=== PATIENT | female | born 1940 | race Caucasian/White ===

== ENCOUNTER 2020-12-02 13:20 | Inpatient (IN) | payer MEDICARE, OTHER, SELFPAY ==
[2020-12-02] VITALS (11 sets, daily range): BP systolic 142–218; BP diastolic 50–92; PULSE 64–86; RESP 14–18; TEMP 36.6–36.8; O2SAT 92–96; BMI 19.1
--- NOTE | 2020-12-02 13:37 | ECG_ITS ---
[facility] Test Date: 2020-12-02 Pat Name: Cherelle Astorga Department: Room: Gender: Female Financial Underwriter: : 1940 Requested By: Maribell Lim Order Number: [id number] Laron MD: Mendy San M.D. Measurements Intervals [place] Rate: 82 P: 77 MI: 174 QRS: 61 QRSD: 73 T: 73 QT: 372 QTc: 436 Interpretive Statements SINUS RHYTHM POSSIBLE LEFT ATRIAL ENLARGEMENT [-0.1mV P-WAVE IN V1/V2] POSSIBLE LEFT VENTRICULAR HYPERTROPHY [VOLTAGE CRITERIA PLUS LAE OR QRS WIDENING] POSSIBLE SEPTAL MYOCARDIAL INFARCTION , OF INDETERMINATE AGE [30 ms Q WAVE IN V1/V2] No previous ECG available for comparison Electronically Signed On 12-04-2020 10:41:42 CDT by Mendy San M.D. [id number]
--- NOTE | 2020-12-02 13:37 | W.ED.FALL ---
HPI - Fall General: Chief Complaint: Fall Stated Complaint: FALL/ SHORTENING AND ROTATION Time Seen by Provider: 12/02/20 13:24 Source: patient and EMS Mode of arrival: EMS Limitations: no limitations History of Present Illness: HPI Narrative: Patient is a nice 80-year-old female who presents to the ED today via EMS for evaluation of a right hip injury that she sustained yesterday after tripping going up her porch. Patient states she was able to get up with assistance and could bear minimal weight on the extremity all day yesterday. Reports she did not strike her head/no LOC. Does not complain of neck/back pain. She states she was trying to get out of her recliner today and felt immediate excruciating right hip pain. Patient was given 100 mcg fentanyl in route and is pain-free upon arrival. Patient has no significant PMH and takes no medications. complaint: fall Onset (ago): hour(s) Fall from: standing Fall witnessed: yes, by family Place fall occurred: home Loss of consciousness: None Prolonged down time: no Symptoms prior to fall: none Context: tripped/slipped Severity: severe Associated symptoms-after fall: Reports difficulty walking; Denies abdominal pain, chest pain, headache(s), hematuria, lightheadedness or neck pain Review of Systems Const: Denies: fever(s), chills, body aches or fatigue Eyes: Denies: change in vision Card: Denies: chest pain, palpitations, irregular heart rhythm, edema, swelling of feet/ankles, lightheadedness, syncope, pre-syncope or dyspnea on exertion Resp: Denies: dyspnea or chest congestion GI: Denies: abdominal pain, nausea, vomiting or diarrhea : Denies: flank pain, dysuria or hematuria Musc: Reports: joint pain (R hip); Denies: neck pain, back pain, extremity pain, extremity swelling or joint swelling Neuro: Reports: difficulty walking; Denies: headache(s), numbness in extremities, weakness in extremities or sensory changes [facility] ED PFSH: Medical History (Updated 12/02/20 @ 19:18 by Bolivar Gamboa MD) No significant family history Surgical History (Updated 12/02/20 @ 19:12 by Bolivar Gamboa MD) No significant past surgical history Family History (Updated 12/02/20 @ 19:13 by Bolivar Gamboa MD) Other CAD (coronary artery disease) Cancer Social History (Updated 12/02/20 @ 19:13 by Bolivar Gamboa MD) Smoking and tobacco status: former smoker Alcohol intake: never Adopted: No Caregiver/support person: Yes Lives independently: Yes Household members: spouse Housing: House Physical Exam Const: COMMON NORMALS: no acute distress, average body habitus, patient oriented x3, no limitations, healthy appearing, alert and well nourished HENMT: COMMON NORMALS: normocephalic and atraumatic HEAD & SCALP: normocephalic and atraumatic Resp: COMMON NORMALS: normal respiratory effort and clear to auscultation bilaterally AUSCULTATION: clear to auscultation bilaterally Cardio: COMMON NORMALS: regular rate and regular rhythm RATE: regular rate RHYTHM: regular rhythm Back/Pelvis: COMMON NORMALS: thoracic and lumbar spine normal to inspection, no thoracic nor lumbar tenderness and thoraco-lumbar ROM normal Extremity: GENERAL: Yes normal exam except as noted OTHER: patient has R LE flexed at the knee with a blanket under; she complaints of fairly significant discomfort with any form of ROM or if I try to extend knee to evaluate for shortening; extremity has good DP/PT pulses and sensory is intact; she complains of pain to direct palpation of lateral and posterior hip joint Neuro: COMMON NORMALS: patient oriented x3, moves all extremities, no focal motor deficits and no sensory deficits noted SENSORIUM/ORIENTATION: Yes alert Skin: COMMON NORMALS: no rashes or lesions noted GENERAL SKIN EXAM: no rashes or lesions noted TRAUMA: no lacerations or abrasions Course Consultations: Consultation #1: Dr. Benitez-recommends admit and he will perform arthoplasty Consultation #2: Dr. Sutton-accepts admission Vital Signs: Vital signs: Vital Signs Temperature 98.2 F 12/03/20 07:23 Pulse Rate 70 12/03/20 07:23 Respiratory Rate 16 12/03/20 07:23 Blood Pressure 162/76 12/03/20 07:23 Pulse Oximetry 96 12/03/20 07:23 MDM - Fall Lab Data: Labs: Lab Results 12/02/20 12/02/20 12/02/20 Range/Units 13:49 13:49 13:49 WBC 9.9 (4.0-10.0) 10^3/ uL RBC 3.16 L (4.1-5.3) 10^6/u L Hgb 10.0 L (11.5-15.3) g/dL Hct 30.2 L (37.0-47.0) % MCV 95.6 (81-99) fl MCH 31.6 (28.0-34.0) pg MCHC 33.1 (30.0-36.0) g/dL RDW 12.6 (12.1-15.1) % Plt Count 144 (130-400) 10^3/c mm MPV 10.3 (7.4-10.4) fL Neut % (Auto) 80.9 % Lymph % (Auto) 6.4 % [place] % (Auto) 11.7 % Eos % (Auto) 0.3 % Baso % (Auto) 0.2 % Neut # (Auto) 8.03 H (1.8-7.7) 10^3/u L Lymph # (Auto) 0.6 L (0.8-4.8) 10^3/u L [place] # (Auto) 1.2 H (0.2-0.9) 10^3/u L Eos # (Auto) 0.0 (0.0-0.8) 10^3/u L Baso # (Auto) 0.0 (0.0-0.1) 10^3/u L Nucleated RBC % (a uto) 0 % Nucleated RBCs # 0.0 /100WBC PT (12.1-14.9) SECO NDS INR (0.8-1.2) Sodium 139 (136-145) mmol/L Potassium 4.1 (3.5-5.1) mmol/L Chloride 104 (98-107) mmol/L Carbon Dioxide 25 (22-29) mmol/L Anion Gap 14.1 (5-19) BUN 23 (8-23) mg/dL Creatinine 1.2 H (0.5-0.9) mg/dL GFR Calculation Not Reportable Glucose 118 H (65-115) mg/dL Calculated Osmolal ity 293 (285-295) mOsm/k g Calcium 8.3 L (8.5-10.5) mg/dL Iron (37-145) ug/dL TIBC mcg/dl % Saturation (20-50) % Unsat Iron Binding (112-347) ug/dL Ferritin (15-150) ng/mL Total Bilirubin 0.4 (0.15-1.2) mg/dL AST 18 (0-32) U/L ALT 16 (0-33) U/L Alkaline Phosphata se 46 (35-105) IU/L NT-Pro-B Natriuret Pep 301 (0-450) pg/mL Total Protein 6.1 L (6.6-8.7) g/dL Albumin 3.5 (3.5-5.2) g/dL Globulin 2.6 (1.3-4.6) g/dL Vitamin B12 (232-1245) pg/mL 25-OH Vitamin D To steven (30-100) ng/mL Folate (4.8-37.3) ng/mL TSH 1.81 (0.27-4.20) uIU/ mL PTH Intact (15-65) pg/mL Calcium (PTH Intac t) (8.5-10.5) mg/dL Urine Color (Yellow) Urine Appearance (CLEAR) Urine pH (5-7) Ur Specific Gravit y (1.005-1.030) Urine Protein (Negative) Urine Glucose (UA) (Normal) Urine Ketones (Negative) Urine Blood (Negative) Urine Nitrate (Negative) Urine Bilirubin (Negative) Urine Urobilinogen (Negative) mg/dL Ur Leukocyte Tonya ase (Negative) Urine RBC (0-2) /hpf Urine WBC (0-5) /hpf Ur Eosinophil Smea r (0-0) Ur Squamous Epith Cells (0-5) /hpf Amorphous Sediment Urine Bacteria (NONE) /hpf Urine Eosinophils Ur Random Sodium mmol/L Ur Random Potassiu m mmol/L Ur Random Chloride mmol/L Urine Creatinine (28-217) mg/dL SARS-CoV-2 Ag (Rap id) (Negative) 12/02/20 12/02/20 12/02/20 Range/Units 13:49 13:49 13:49 WBC (4.0-10.0) 10^3/ uL RBC (4.1-5.3) 10^6/u L Hgb (11.5-15.3) g/dL Hct (37.0-47.0) % MCV (81-99) fl MCH (28.0-34.0) pg MCHC (30.0-36.0) g/dL RDW (12.1-15.1) % Plt Count (130-400) 10^3/c mm MPV (7.4-10.4) fL Neut % (Auto) % Lymph % (Auto) % [place] % (Auto) % Eos % (Auto) % Baso % (Auto) % Neut # (Auto) (1.8-7.7) 10^3/u L Lymph # (Auto) (0.8-4.8) 10^3/u L [place] # (Auto) (0.2-0.9) 10^3/u L Eos # (Auto) (0.0-0.8) 10^3/u L Baso # (Auto) (0.0-0.1) 10^3/u L Nucleated RBC % (a uto) % Nucleated RBCs # /100WBC PT 13.50 (12.1-14.9) SECO NDS INR 1.00 (0.8-1.2) Sodium (136-145) mmol/L Potassium (3.5-5.1) mmol/L Chloride (98-107) mmol/L Carbon Dioxide (22-29) mmol/L Anion Gap (5-19) BUN (8-23) mg/dL Creatinine (0.5-0.9) mg/dL GFR Calculation Glucose (65-115) mg/dL Calculated Osmolal ity (285-295) mOsm/k g Calcium (8.5-10.5) mg/dL Iron 18 L (37-145) ug/dL TIBC 211 mcg/dl % Saturation 8.5 L (20-50) % Unsat Iron Binding 193 (112-347) ug/dL Ferritin 113 (15-150) ng/mL Total Bilirubin (0.15-1.2) mg/dL AST (0-32) U/L ALT (0-33) U/L Alkaline Phosphata se (35-105) IU/L NT-Pro-B Natriuret Pep (0-450) pg/mL Total Protein (6.6-8.7) g/dL Albumin (3.5-5.2) g/dL Globulin (1.3-4.6) g/dL Vitamin B12 865 (232-1245) pg/mL 25-OH Vitamin D To steven 31 (30-100) ng/mL Folate (4.8-37.3) ng/mL TSH (0.27-4.20) uIU/ mL PTH Intact 37.9 (15-65) pg/mL Calcium (PTH Intac t) 8.0 L (8.5-10.5) mg/dL Urine Color (Yellow) Urine Appearance (CLEAR) Urine pH (5-7) Ur Specific Gravit y (1.005-1.030) Urine Protein (Negative) Urine Glucose (UA) (Normal) Urine Ketones (Negative) Urine Blood (Negative) Urine Nitrate (Negative) Urine Bilirubin (Negative) Urine Urobilinogen (Negative) mg/dL Ur Leukocyte Tonya ase (Negative) Urine RBC (0-2) /hpf Urine WBC (0-5) /hpf Ur Eosinophil Smea r (0-0) Ur Squamous Epith Cells (0-5) /hpf Amorphous Sediment Urine Bacteria (NONE) /hpf Urine Eosinophils Ur Random Sodium mmol/L Ur Random Potassiu m mmol/L Ur Random Chloride mmol/L Urine Creatinine (28-217) mg/dL SARS-CoV-2 Ag (Rap id) (Negative) 12/02/20 12/02/20 12/02/20 Range/Units 13:49 15:17 15:17 WBC (4.0-10.0) 10^3/ uL RBC (4.1-5.3) 10^6/u L Hgb (11.5-15.3) g/dL Hct (37.0-47.0) % MCV (81-99) fl MCH (28.0-34.0) pg MCHC (30.0-36.0) g/dL RDW (12.1-15.1) % Plt Count (130-400) 10^3/c mm MPV (7.4-10.4) fL Neut % (Auto) % Lymph % (Auto) % [place] % (Auto) % Eos % (Auto) % Baso % (Auto) % Neut # (Auto) (1.8-7.7) 10^3/u L Lymph # (Auto) (0.8-4.8) 10^3/u L [place] # (Auto) (0.2-0.9) 10^3/u L Eos # (Auto) (0.0-0.8) 10^3/u L Baso # (Auto) (0.0-0.1) 10^3/u L Nucleated RBC % (a uto) % Nucleated RBCs # /100WBC PT (12.1-14.9) SECO NDS INR (0.8-1.2) Sodium (136-145) mmol/L Potassium (3.5-5.1) mmol/L Chloride (98-107) mmol/L Carbon Dioxide (22-29) mmol/L Anion Gap (5-19) BUN (8-23) mg/dL Creatinine (0.5-0.9) mg/dL GFR Calculation Glucose (65-115) mg/dL Calculated Osmolal ity (285-295) mOsm/k g Calcium (8.5-10.5) mg/dL Iron (37-145) ug/dL TIBC mcg/dl % Saturation (20-50) % Unsat Iron Binding (112-347) ug/dL Ferritin (15-150) ng/mL Total Bilirubin (0.15-1.2) mg/dL AST (0-32) U/L ALT (0-33) U/L Alkaline Phosphata se (35-105) IU/L NT-Pro-B Natriuret Pep (0-450) pg/mL Total Protein (6.6-8.7) g/dL Albumin (3.5-5.2) g/dL Globulin (1.3-4.6) g/dL Vitamin B12 (232-1245) pg/mL 25-OH Vitamin D To steven (30-100) ng/mL Folate 18.8 (4.8-37.3) ng/mL TSH (0.27-4.20) uIU/ mL PTH Intact (15-65) pg/mL Calcium (PTH Intac t) (8.5-10.5) mg/dL Urine Color Yellow (Yellow) Urine Appearance Clear (CLEAR) Urine pH 7 (5-7) Ur Specific Gravit y 1.005 (1.005-1.030) Urine Protein Trace (Negative) Urine Glucose (UA) Norm (Normal) Urine Ketones Negative (Negative) Urine Blood 2+ H (Negative) Urine Nitrate Negative (Negative) Urine Bilirubin Neg (Negative) Urine Urobilinogen Norm (Negative) mg/dL Ur Leukocyte Tonya ase Negative (Negative) Urine RBC 5-10 H (0-2) /hpf Urine WBC 5-10 H (0-5) /hpf Ur Eosinophil Smea r 0 (0-0) Ur Squamous Epith Cells 0-4 H (0-5) /hpf Amorphous Sediment Not Reportable Urine Bacteria 2+ H (NONE) /hpf Urine Eosinophils No eosinophils se en Ur Random Sodium mmol/L Ur Random Potassiu m mmol/L Ur Random Chloride mmol/L Urine Creatinine (28-217) mg/dL SARS-CoV-2 Ag (Rap id) (Negative) 12/02/20 12/02/20 Range/Units 15:17 16:10 WBC (4.0-10.0) 10^3/ uL RBC (4.1-5.3) 10^6/u L Hgb (11.5-15.3) g/dL Hct (37.0-47.0) % MCV (81-99) fl MCH (28.0-34.0) pg MCHC (30.0-36.0) g/dL RDW (12.1-15.1) % Plt Count (130-400) 10^3/c mm MPV (7.4-10.4) fL Neut % (Auto) % Lymph % (Auto) % [place] % (Auto) % Eos % (Auto) % Baso % (Auto) % Neut # (Auto) (1.8-7.7) 10^3/u L Lymph # (Auto) (0.8-4.8) 10^3/u L [place] # (Auto) (0.2-0.9) 10^3/u L Eos # (Auto) (0.0-0.8) 10^3/u L Baso # (Auto) (0.0-0.1) 10^3/u L Nucleated RBC % (a uto) % Nucleated RBCs # /100WBC PT (12.1-14.9) SECO NDS INR (0.8-1.2) Sodium (136-145) mmol/L Potassium (3.5-5.1) mmol/L Chloride (98-107) mmol/L Carbon Dioxide (22-29) mmol/L Anion Gap (5-19) BUN (8-23) mg/dL Creatinine (0.5-0.9) mg/dL GFR Calculation Glucose (65-115) mg/dL Calculated Osmolal ity (285-295) mOsm/k g Calcium (8.5-10.5) mg/dL Iron (37-145) ug/dL TIBC mcg/dl % Saturation (20-50) % Unsat Iron Binding (112-347) ug/dL Ferritin (15-150) ng/mL Total Bilirubin (0.15-1.2) mg/dL AST (0-32) U/L ALT (0-33) U/L Alkaline Phosphata se (35-105) IU/L NT-Pro-B Natriuret Pep (0-450) pg/mL Total Protein (6.6-8.7) g/dL Albumin (3.5-5.2) g/dL Globulin (1.3-4.6) g/dL Vitamin B12 (232-1245) pg/mL 25-OH Vitamin D To steven (30-100) ng/mL Folate (4.8-37.3) ng/mL TSH (0.27-4.20) uIU/ mL PTH Intact (15-65) pg/mL Calcium (PTH Intac t) (8.5-10.5) mg/dL Urine Color (Yellow) Urine Appearance (CLEAR) Urine pH (5-7) Ur Specific Gravit y (1.005-1.030) Urine Protein (Negative) Urine Glucose (UA) (Normal) Urine Ketones (Negative) Urine Blood (Negative) Urine Nitrate (Negative) Urine Bilirubin (Negative) Urine Urobilinogen (Negative) mg/dL Ur Leukocyte Tonya ase (Negative) Urine RBC (0-2) /hpf Urine WBC (0-5) /hpf Ur Eosinophil Smea r (0-0) Ur Squamous Epith Cells (0-5) /hpf Amorphous Sediment Urine Bacteria (NONE) /hpf Urine Eosinophils Ur Random Sodium 79 mmol/L Ur Random Potassiu m 22 mmol/L Ur Random Chloride 67 mmol/L Urine Creatinine 41 (28-217) mg/dL SARS-CoV-2 Ag (Rap id) Negative (Negative) Imaging Data^: CXR: Radiologist's impression: [facility] [address] [place] [address] XRay Report Signed Patient: Cherelle Astorga Unit #: [id number] : 1940 Age/Sex: 80 / F ADM Date: 12/02/20 Loc: ER Room/Bed: Attending Dr: Ordering Provider/Ordering MD: Maribell Lim Date of Service: 12/02/20 Procedure(s): XR chest 1V portable [id number] Accession Number(s): [id number] Report Number: [id number] PROCEDURE INFORMATION: Exam: XR Chest Exam date and time: 12/02/2020 1:37 PM Age: 80 years old Clinical indication: Injury or trauma; Fall; Blunt trauma (contusions or hematomas); Additional info: Probable admit TECHNIQUE: Imaging protocol: XR of the chest. Views: 1 view. COMPARISON: No relevant prior studies available. FINDINGS: Lungs: Unremarkable. No consolidation. Pleural spaces: Unremarkable. No pleural effusion. No pneumothorax. Heart/Mediastinum: Unremarkable. No cardiomegaly. Bones/joints: Unremarkable. XR/XR chest 1V portable [id number] IMPRESSION: No acute findings. Dictated By: Marisela Box MD Signed By: Marisela Box MD Signed Date/Time: 12/02/20 1504 DD/ 1502 R hip/pelvis XR: Radiologist's impression: [facility] [place], [place] [address]JSfq ReportSigned Patient: Cherelle Astorgait #: [id number]: 1940cct#:[id number]/Sex: 80 / FADM Date: 12/02/20Loc: ERRoom/Bed:Attending Dr: Ordering Provider/Ordering MD: Maribell Lim Date of Service: 12/02/20 Procedure(s): XR hip RT 2-3V wo/w pel* [id number] Accession Number(s): [id number] Report Number: [id number] PROCEDURE INFORMATION: Exam: XR Right Hip Exam date and time: 12/02/2020 1:36 PM Age: 80 years old Clinical indication: Injury or trauma; Fall; Blunt trauma (contusions or hematomas); Right; Hip; Additional info: Trauma; With one view pelvis too please TECHNIQUE: Imaging protocol: XR Right hip. Views: 1 view hip with pelvis when performed. COMPARISON: No relevant prior studies available. FINDINGS: Bones/joints: There is a right femoral neck fracture. There is osteopenia. No dislocation. Soft tissues: Unremarkable. XR/XR hip RT 2-3V wo/w pel* [id number] IMPRESSION: There is a right femoral neck fracture. If there is desire for further evaluation, a CT scan could be performed. Dictated By:Marisela Box MDSigned By:Marisela Box MDSigned Date/Time:12/02/20 1545DD/ 154 Discharge Plan Discharge Patient Disposition: Admitted As Inpatient Admit Provider: Bolivar Gamboa Clinical Impression: Closed displaced fracture of right femoral neck Anemia Qualifiers: Anemia type: unspecified type Qualified Code(s): D64.9 - Anemia, unspecified Condition: Stable Coding Level of Care Code ED Patient Assessment Coordinator for Chg Fwd Exam Comprehensive
[2020-12-02 14:01] LABS: Basophils % 0.2 %; Eosinophils % 0.3 %; Hematocrit 30.2 % (37.0-47.0); Lymphocytes # 0.6 10^3/uL (0.8-4.8); Lymphocytes % 6.4 %; Mean Corpuscular HGB Conc 33.1 g/dL (30.0-36.0); Mean Corpuscular Hemoglobin 31.6 pg (28.0-34.0); Mean Corpuscular Volume 95.6 fl (81-99); Mean Platelet Volume 10.3 fL (7.4-10.4); Monocytes # 1.2 10^3/uL (0.2-0.9); Monocytes % 11.7 %; Neutrophils # 8.03 10^3/uL (1.8-7.7); Neutrophils % 80.9 %; Nucleated Red Blood Cells % 0 %; Platelet Count 144 10^3/cmm (130-400); Red Blood Count 3.16 10^6/uL (4.1-5.3); Red Cell Distribution Width 12.6 % (12.1-15.1); White Blood Count 9.9 10^3/uL (4.0-10.0)
[2020-12-02 14:21] LABS: Alanine Aminotransferase 16 U/L (0-33); Albumin Level 3.5 g/dL (3.5-5.2); Alkaline Phosphatase 46 IU/L (35-105); Anion Gap 14.1 (5-19); Aspartate Amino Transferase 18 U/L (0-32); Blood Urea Nitrogen 23 mg/dL (8-23); Calcium 8.3 mg/dL (8.5-10.5); Carbon Dioxide 25 mmol/L (22-29); Chloride 104 mmol/L (98-107); Globulin 2.6 g/dL (1.3-4.6); Glucose 118 mg/dL (65-115); Osmolality Calculated 293 mOsm/kg (285-295); Potassium 4.1 mmol/L (3.5-5.1); Sodium 139 mmol/L (136-145); Total Bilirubin 0.4 mg/dL (0.15-1.2); Total Protein 6.1 g/dL (6.6-8.7)
[2020-12-02] MEDS: morphine 4 mg/mL SDV 1 mL IVP (15:40)
[2020-12-02 15:54] LABS: Bilirubin Urine Neg (Negative); Blood Urine 2+ (Negative); Glucose Urine UA Norm (Normal); Ketones Urine Negative (Negative); Nitrate Urine Negative (Negative); Protein Urine Trace (Negative); Specific Gravity, Urine 1.005 (1.005-1.030); Urine Appearance Clear (CLEAR); Urine Color Yellow (Yellow); pH Urine 7 (5-7)
[2020-12-02 15:55] LABS: Add Urine Microscopic? YES; Leukocyte Esterase Urine Negative (Negative); Urobilinogen Urine Norm (Negative)
--- NOTE | 2020-12-02 15:57 | P.HP_ITS ---
Providers/Chief Complaint Chief Complaint: FALL/ SHORTENING AND ROTATION History of Present Illness Cherelle Astorga is a 80 year old female with no significant PMH who is a visiting home from [facility]. She was staying with her sister in [place]. She apparently bent over to pet a cat when she fell landing on her right side with immediate pain and inability to bear weight. She was transferred here by EMS for radiographs revealed a displaced right femoral neck fracture. She is with her . She apparently uses no ambulatory aids prior to this. She denies any extremity or head injury. In the ER patient was found to have high blood pressure going up to 210 systoli c. Patient denies any history of hypertension in the past. States she checks her blood pressure occasionally at home and usually numbers are less than 140. She states she follows up with a primary care provider every 6 months. She has not been vaccinated for COVID-19 though denies any known contact. Her spouse/significant other though was vaccinated for COVID-19. Blood work in the ER was significant for Hemoglobin of 10, creatinine of 1.2, calcium of 8.3, UA negative for any signs of infection with lower limb x-ray as below. Review of Systems General: Reports: 10 or more systems reviewed and unremarkable except in HPI and below Const: Denies: fever(s), chills, body aches, change in appetite, change in weight, malaise, night sweats, diaphoresis, change in sleep pattern, daytime sleepiness or snoring Eyes: Denies: change in vision, blurry vision, photophobia, eye discomfort or eye discharge ENMT: Denies: throat pain, enlarged tonsils, hoarseness, mouth pain, oral sores, dry mouth, tinnitus, nasal congestion or post nasal drip Card: Denies: chest pain, palpitations, irregular heart rhythm, edema, swelling of feet/ankles, lightheadedness, syncope, pre-syncope, dyspnea on exertion, orthopnea, leg pain with exertion or acrocyanosis Resp: Denies: dyspnea, productive cough, non-productive cough, wheezing, stridor, pain on inspiration, change in phlegm color, hemoptysis or chest congestion GI: Denies: abdominal pain, nausea, vomiting, hematemesis, coffee ground emesis, dysphagia, heartburn, diarrhea, constipation, bloating, GI cramping, change in bowel habits, pain on defecation, hematochezia or melena : Denies: flank pain, dysuria, urinary frequency, urinary urgency, urinary hesitancy, nocturia or hematuria Musc: Denies: neck pain, back pain, extremity pain, joint pain, joint swelling, joint redness, joint stiffness or limited range of motion Neuro: Denies: headache(s), numbness in extremities, weakness in extremities, sensory changes, lack of coordination, difficulty walking, frequent falls, dizziness, vertigo, confusion, Slurred speech present, difficulty communicating thoughts or seizure-like activity Psych: Denies: anxiety, depression, mood swings, panic attacks, hopelessness or irritability Endo: Denies: polyuria, polydipsia, tired all the time, cold intolerance, excessive sweating, flushing or heat intolerance Griffin/Lymph: Denies: easy bruising or easy bleeding All/Imm: Denies: tongue swelling, facial swelling or acute wheezing Medications/Allergies Home Medications Medication Instructions Recorded Confirmed Last Taken Type Smooth Move Laxative 1 ea PO DAILY 12/02/20 12/02/20 12/01/20 History Vitamin D3 1 tab PO DAILY 12/02/20 12/02/20 12/01/20 History omega-3 fatty acids-fish oil 1 cap PO DAILY 12/02/20 12/02/20 12/01/20 History [[place] 3 Fish Oil] PFSH Acute PFSH: Medical History (Updated 12/02/20 @ 19:18 by Bolivar Gamboa MD) No significant family history Surgical History (Updated 12/02/20 @ 19:12 by Bolivar Gamboa MD) No significant past surgical history Family History (Updated 12/02/20 @ 19:13 by Bolivar Gamboa MD) Other CAD (coronary artery disease) Cancer Social History (Updated 12/02/20 @ 19:13 by Bolivar Gamboa MD) Smoking and tobacco status: former smoker Alcohol intake: never Adopted: No Caregiver/support person: Yes Lives independently: Yes Household members: spouse Housing: House Vitals/I&O/Wt Last Vital Signs Temp 98.2 F 12/02/20 13:30 Pulse 86 12/02/20 15:44 Resp 16 12/02/20 15:40 BP 218/50 12/02/20 15:44 Pulse Ox 95 12/02/20 15:44 Weight last 48 hrs Weight 55.338 kg Physical Exam Narrative: EXAM NARRATIVE: General: No acute distress, AO x3, mildly dehydrated HEENT: PERRLA, pupils bilaterally equal and reactive Chest: Normal vesicular breath sounds, no added sounds, equal good air entry bilaterally CVS: S1-S2 regular, no murmurs, no tachycardia, no gallops, no rubs Abdomen: Soft, nontender, no organomegaly, bowel sounds present Neuro: No focal deficits, no facial deformity, AO x3, power 5/5 in all limbs Urinary Catheter Management^: Pineda: Cath Placed During This Visit: yes Urinary Catheter Date of Insertion: 12/02/20 Urinary Catheter Time of Insertion: 15:23 Data : 12/02/20 13:49 12/02/20 13:49 Other Labs: Laboratory Results WBC 9.9 10^3/uL (4.0-10.0) 12/02/20 13:49 RBC 3.16 10^6/uL (4.1-5.3) L 12/02/20 13:49 Hgb 10.0 g/dL (11.5-15.3) L 12/02/20 13:49 Hct 30.2 % (37.0-47.0) L 12/02/20 13:49 MCV 95.6 fl (81-99) 12/02/20 13:49 MCH 31.6 pg (28.0-34.0) 12/02/20 13:49 MCHC 33.1 g/dL (30.0-36.0) 12/02/20 13:49 RDW 12.6 % (12.1-15.1) 12/02/20 13:49 Plt Count 144 10^3/cmm (130-400) 12/02/20 13:49 MPV 10.3 fL (7.4-10.4) 12/02/20 13:49 Neut % (Auto) 80.9 % 12/02/20 13:49 Lymph % (Auto) 6.4 % 12/02/20 13:49 [place] % (Auto) 11.7 % 12/02/20 13:49 Eos % (Auto) 0.3 % 12/02/20 13:49 Baso % (Auto) 0.2 % 12/02/20 13:49 Neut # (Auto) 8.03 10^3/uL (1.8-7.7) H 12/02/20 13:49 Lymph # (Auto) 0.6 10^3/uL (0.8-4.8) L 12/02/20 13:49 [place] # (Auto) 1.2 10^3/uL (0.2-0.9) H 12/02/20 13:49 Eos # (Auto) 0.0 10^3/uL (0.0-0.8) 12/02/20 13:49 Baso # (Auto) 0.0 10^3/uL (0.0-0.1) 12/02/20 13:49 Nucleated RBC % (auto) 0 % 12/02/20 13:49 Nucleated RBCs # 0.0 /100WBC 12/02/20 13:49 PT 13.50 SECONDS (12.1-14.9) 12/02/20 13:49 INR 1.00 (0.8-1.2) 12/02/20 13:49 Sodium 139 mmol/L (136-145) 12/02/20 13:49 Potassium 4.1 mmol/L (3.5-5.1) 12/02/20 13:49 Chloride 104 mmol/L (98-107) 12/02/20 13:49 Carbon Dioxide 25 mmol/L (22-29) 12/02/20 13:49 Anion Gap 14.1 (5-19) 12/02/20 13:49 BUN 23 mg/dL (8-23) 12/02/20 13:49 Creatinine 1.2 mg/dL (0.5-0.9) H 12/02/20 13:49 GFR Calculation Not Reportable 12/02/20 13:49 Glucose 118 mg/dL (65-115) H 12/02/20 13:49 Calculated Osmolality 293 mOsm/kg (285-295) 12/02/20 13:49 Calcium 8.3 mg/dL (8.5-10.5) L 12/02/20 13:49 Total Bilirubin 0.4 mg/dL (0.15-1.2) 12/02/20 13:49 AST 18 U/L (0-32) 12/02/20 13:49 ALT 16 U/L (0-33) 12/02/20 13:49 Alkaline Phosphatase 46 IU/L (35-105) 12/02/20 13:49 NT-Pro-B Natriuret Pep 301 pg/mL (0-450) 12/02/20 13:49 Total Protein 6.1 g/dL (6.6-8.7) L 12/02/20 13:49 Albumin 3.5 g/dL (3.5-5.2) 12/02/20 13:49 Globulin 2.6 g/dL (1.3-4.6) 12/02/20 13:49 TSH 1.81 uIU/mL (0.27-4.20) 12/02/20 13:49 Urine Color Yellow (Yellow) 12/02/20 15:17 Urine Appearance Clear (CLEAR) 12/02/20 15:17 Urine pH 7 (5-7) 12/02/20 15:17 Ur Specific Tad 1.005 (1.005-1.030) 12/02/20 15:17 Urine Protein Trace (Negative) 12/02/20 15:17 Urine Glucose (UA) Norm (Normal) 12/02/20 15:17 Urine Ketones Negative (Negative) 12/02/20 15:17 Urine Blood 2+ (Negative) H 12/02/20 15:17 Urine Nitrate Negative (Negative) 12/02/20 15:17 Urine Bilirubin Neg (Negative) 12/02/20 15:17 Urine Urobilinogen Norm mg/dL (Negative) 12/02/20 15:17 Ur Leukocyte Esterase Negative (Negative) 12/02/20 15:17 Urine RBC 5-10 /hpf (0-2) H 12/02/20 15:17 Urine WBC 5-10 /hpf (0-5) H 12/02/20 15:17 Ur Squamous Epith Cells 0-4 /hpf (0-5) H 12/02/20 15:17 Amorphous Sediment Not Reportable 12/02/20 15:17 Urine Bacteria 2+ /hpf (NONE) H 12/02/20 15:17 SARS-CoV-2 Ag (Rapid) Negative (Negative) 12/02/20 16:10 Impressions Hip/Pelvis X-Ray 12/02/20 13:36 IMPRESSION: There is a right femoral neck fracture. If there is desire for further evaluation, a CT scan could be performed. Chest X-Ray 12/02/20 13:37 IMPRESSION: No acute findings. A&P Assessment and plan (1) Closed displaced fracture of right femoral neck: Status: Acute (2) Hypertension: Status: Acute (3) Anemia: Status: Acute Qualifiers: Anemia type: unspecified type Qualified Code(s): D64.9 - Anemia, unspecified (4) AIMEE (acute kidney injury): Status: Acute (5) Fall: Status: Acute Additional A&P Information Fall: Mechanical. Check CT head. Closed hip fracture: Orthopedics has been consulted. Physical therapy, perioperative antibiotics, anticoagulation as per orthopedics team. Morphine 2 mg every 4 hours as needed for pain. We will try to avoid overmed ication. Monitor hemoglobin postoperatively. High blood pressure: Past medical history of hypertension. Goal blood pressure for now less than 160 mmHg systolic given presentation blood pressure of 210 mmHg.. For now start patient on amlodipine 10 mg oral daily, metoprolol 25 mg twice daily. Acute kidney injury: Creatinine 1.2. We do not have a baseline. Could be secondary to dehydration. Normal saline at 50 cc/h. No electrolyte normality. Check urine lites, urine creatinine. Check BMP daily. Anemia: Do not have baseline. Check iron panel, vitamin B12, folate level. Start on oral iron supplementation. Check TSH, lipid panel, HbA1c, CODE STATUS: Discussed in detail with patient and significant other at bedside. Full code for now. Protonix for PUD prophylaxis. SCDs for DVT prophylaxis. Cardiac diet, n.p.o. after midnight. Attestations Medical Necessity Statement*: Admission for more than 2 midnights for perioperative care for right hip fracture needing ORIF Time Spent in Patient Care: Greater than 35 minutes (>than 50% of time spent in counselling and/or direct pt care on unit) . Coding Level of Care Code Acute Electric Refrigerator Servicer for [facility] Fwd Diagnoses Closed displaced fracture of right femoral neck S72.001A Hypertension I10 Anemia D64.9 Anemia type: unspecified type AIMEE (acute kidney injury) N17.9 Fall W19.XXXA
--- NOTE | 2020-12-02 15:59 | USCV_ITS ---
Cherelle Astorga Age: 80 Gender: F : 1940 Exam Date: 12/02/2020 16:18 Ordering Phys: Bolivar Gamboa MD Technologist: ATTILA BARCLAY Exam Location: [facility] – [place] Indication: PRE OP HIP FX IN AM BP: / HR: 80 Rhythm: Sinus Technical Quality: Adequate MEASUREMENTS (Male / Female) Normal Values 2D ECHO LV Diastolic Diameter PLAX 3.9 cm 4.2 - 5.9 / 3.9 - 5.3 cm LV Systolic Diameter PLAX 3.1 cm LV Chamber Size 3.4 cm IVS Diastolic Thickness 1.2 cm 0.6 - 1.0 / 0.6 - 0.9 cm IVS Systolic Thickness 1.4 cm LVPW Diastolic Thickness 1.2 cm 0.6 - 1.0 / 0.6 - 0.9 cm LVPW Systolic Thickness 1.3 cm RV Chamber Size 2.8 cm LVOT Diameter 2.1 cm LV Ejection Fraction 2D Teich 43.1 % LV Ejection Fraction MOD 2C 41.6 % LV Ejection Fraction 2C AL 43.9 % LA Diameter 3.3 cm LA Width 3.0 cm LA Height 4.2 cm RA Width 3.4 cm RA Height 3.6 cm Aorta at Sinotubular Diameter 2.8 cm M-MODE LV Diastolic Diameter MM 4.0 cm 4.2 - 5.9 / 3.9 - 5.3 cm LV Systolic Diameter MM 2.7 cm LV Ejection Fraction MM Teich 61.7 % IVS Diastolic Thickness MM 1.2 cm 0.6 - 1.0 / 0.6 - 0.9 cm IVS Systolic Thickness MM 1.3 cm LVPW Diastolic Thickness MM 0.9 cm 0.6 - 1.0 / 0.6 - 0.9 cm LVPW Systolic Thickness MM 1.2 cm RV Diastolic Diameter MM 1.5 cm Aortic Annulus Diameter 3.3 cm LA Ao Ratio MM 1.1 MV E Point Septal Separation 0.3 cm DOPPLER AV Peak Velocity 161.0 cm/s LVOT Peak Velocity 98.0 cm/s AV Area Cont Eq vti 2.5 cm squared AV Area Cont Eq pk 2.1 cm squared MV Area PHT 3.5 cm squared Mitral E to A Ratio 0.8 MV E' Velocity 49.5 cm/s Mitral E to MV E' Ratio 9.8 Mitral E to LV E' Lateral Ratio 10.3 Mitral E to LV E' Septal Ratio 9.3 TR Peak Velocity 286.1 cm/s TR Peak Gradient 32.7 mmHg TR Mean Velocity 219.8 cm/s TR Mean Gradient 20.8 mmHg TR Velocity Time Integral 85.6 cm TV Peak E Velocity 60.0 cm/s Right Atrial Pressure 3.0 mmHg Pulmonary Artery Systolic Pressu 35.7 mmHg PV Peak Velocity 58.0 cm/s RV Acceleration Time 0.1 s RV Ejection Time 0.3 s RV AcT/ET 0.4 FINDINGS Left Ventricle Normal left ventricular size, systolic function and mildly increased wall thickness, with no regional wall motion abnormalities. Mild concentric left ventricular hypertrophy. Left ventricular ejection fraction is estimated at 70 %. Grade II diastolic dysfunction, moderately elevated filling pressures. Right Ventricle Normal right ventricular size and systolic function. Right ventricular systolic pressure 35.7 mmHg. Right Atrium Normal right atrial size. 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 Left Atrium Mildly increased left atrial size. Mitral Valve Mild mitral annular calcification. Mildly thickened mitral valve. No mitral valve stenosis. Mild mitral valve regurgitation. Aortic Valve Mildly thickened trileaflet aortic valve. No aortic valve stenosis. No aortic valve regurgitation. Tricuspid Valve Structurally normal tricuspid valve. No tricuspid valve stenosis. Mild tricuspid valve regurgitation. Pulmonic Valve Structurally normal pulmonic valve. No pulmonary valve stenosis. No significant pulmonary valve regurgitation. Pericardium No pericardial effusion. Echo free space anterior to the right ventricle likely represents a fat pad. Aorta Normal size aortic root. Normal sized inferior vena cava with normal respiratory variations. CONCLUSIONS 1. Normal left ventricular size, systolic function and mildly increased wall thickness, with no regional wall motion abnormalities. Mild concentric left ventricular hypertrophy. Left ventricular ejection fraction is estimated at 70 %. Grade II diastolic dysfunction, moderately elevated filling pressures. 2. Normal right ventricular size and systolic function. 3. 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 4. Mild mitral and tricuspid valve regurgitation. 5. Mild pulmonary hypertension with pulmonary artery pressure estimated at 36 mm Hg. 6. No prior similar studies to compare. Mendy San MD (Electronically Signed) Final Date: 05 December 2020 07:50 S
[2020-12-02 16:08] LABS: Add Urine Culture? Yes; Bacteria Urine 2+ /hpf; Squamous Epithelial Cell Urine 0-4 /hpf (0-5)
--- NOTE | 2020-12-02 16:54 | P.CONIM_ITS ---
Providers/Reason For Consult Consulting Physician/Specialty*: Raman Benitez MD; orthopedic surgery Reason for Consult*: Right femoral neck fracture History of Present Illness History of Present Illness Cherelle Astorga is a 80 year old female who is a visiting home from [facility]. She was staying with her sister in [place]. She apparently bent over to pet a cat when she fell landing on her right side with immediate pain and inability to bear weight. She was transferred here by EMS for radiographs revealed a displaced right femoral neck fracture. She is with her . She apparently uses no ambulatory aids prior to this. She denies any extremity or head injury. Meds/Allergies Home Medications and Allergies Home Medications Medication Instructions Recorded Confirmed Last Taken Type Smooth Move Laxative 1 ea PO DAILY 12/02/20 12/02/20 12/01/20 History Vitamin D3 1 tab PO DAILY 12/02/20 12/02/20 12/01/20 History omega-3 fatty acids-fish oil 1 cap PO DAILY 12/02/20 12/02/20 12/01/20 History [[place] 3 Fish Oil] Vitals/I&O/Wt Last Vital Signs Temp 98.2 F 12/02/20 13:30 Pulse 77 12/02/20 16:27 Resp 16 12/02/20 15:40 BP 180/50 12/02/20 16:27 Pulse Ox 93 12/02/20 16:27 Weight last 48 hrs Weight 122 lb Physical Exam Narrative: EXAM NARRATIVE: HEAD: Normocephalic/atraumatic. NECK: Soft supple nontender. HEART: Normal heart sounds, regular rhythm. CHEST: Clear to auscultation. ABDOMEN: Soft nontender nondistended. On examination of the patient's right hip she has clear shortening and external rotation. There is exquisite pain with any motion of the right hip. She has a palpable right dorsalis pedis pulse. She will flex extend her toes and her ankle without any motor deficits. Urinary Catheter Management^: Pineda: Cath Placed During This Visit: yes Urinary Catheter Date of Insertion: 12/02/20 Urinary Catheter Time of Insertion: 15:23 Data Imaging^: Xray Ortho: My impression: Radiographs of the right hip are interpreted from today. The patient has displaced right femoral neck fracture. A&P Assessment and plan (1) Closed displaced fracture of right femoral neck: I discussed treatment of displaced femoral neck fractures with the patient and her . With her age is inherent osteopenia and displacement of the fracture I think there is a very low likelihood that this could be successfully treated with pinning. I think her best choice would be bipolar arthroplasty. I discussed options with the patient and family. I told them possible treatments for displaced femoral neck fracture would include nonoperative treatment, open reduction internal fixation, or hemiarthroplasty. I told them without treatment the patient would experience ongoing of pain that would limit mobility. This would require pain medications and place her at medical risks due to prolonged periods of bed rest. I discussed the possibility of open reduction internal fixation with pins. I warned them that for displaced fractures of the risk of nonunion and malunion is exceptionally high. In addition there is a high likelihood that the blood applied to the femoral head has been disrupted and that even with successful stabilization of the fracture the femoral head will go on to . I finally discussed the possibility of hemiarthroplasty. I think this would give the patient the greatest chance of being immediately mobilized. I discussed risk of a bleeding and a possible need for blood products. I discussed risk of deep venous thromboses and pulmonary emboli and the need for anticoagulation. I discussed the use of the TXA that may be utilized to diminish blood loss. I discussed risk of component failure and loosening that could require revision. I discussed the risk of dislocation and a bipolar arthroplasty which is quite unlikely. After a long discussion of options they agree to hemiarthroplasty of the hip. I told him ultimately the patient will likely require prison placement. Status: Acute Coding Level of Care Code Acute Cast Shell Grinder for [facility] Dheeraj Diagnoses Closed displaced fracture of right femoral neck S72.001A
[2020-12-02 17:00] LABS: SARS Covid-2 Antigen Negative (Negative)
[2020-12-02] MEDS: metoprolol tartrate 25 mg Tablet PO ×2 (17:26→21:52)
[2020-12-02] MEDS: famotidine 20 mg/2 mL INJ IVP (17:26)
[2020-12-02] MEDS: ferrous gluconate 324 mg Tablet PO (17:34)
[2020-12-02 17:54] LABS: NT Pro B Type Natriuretic Pept 301 pg/mL (0-450); Thyroid Stimulating Hormone 1.81 uIU/mL (0.27-4.20)
[2020-12-02 20:28] LABS: Potassium, Radom Urine 22 mmol/L; Urine Creatinine 41 mg/dL (28-217); Urine Random Chloride 67 mmol/L; Urine Random Sodium 79 mmol/L
[2020-12-02 21:33] LABS: 25 Hydroxy Vitamin D 31 ng/mL (30-100); Ferritin 113 ng/mL (15-150); Iron 18 ug/dL (37-145); Percent Saturation 8.5 % (20-50); Total Iron Binding Capacity 211 mcg/dl; Unsaturated Iron Binding 193 ug/dL (112-347); Vitamin B12 865 pg/mL (232-1245)
[2020-12-02 21:34] LABS: Folate Level 18.8 ng/mL (4.8-37.3)
[2020-12-02] MEDS: morphine 4 mg/mL SDV 1 mL 2 MG IVP (21:52)
[2020-12-02] MEDS: sodium chlor 0.9% + KCl 20 mEq 20 MEQ/1,000 ML BAG 50 MEQ IV (21:53)
[2020-12-02 23:26] LABS: Parathyroid Hormone 37.9 pg/mL (15-65)
[2020-12-02 23:45] LABS: Eosinophil Urine No Eosinophils Seen; Urine Eosinophil Count 0 (0-0)
[2020-12-03] VITALS (16 sets, daily range): BP systolic 119–178; BP diastolic 58–78; PULSE 61–84; RESP 12–22; TEMP 36.4–36.9; O2SAT 92–100
[2020-12-03] MEDS: famotidine 20 mg/2 mL INJ IVP (03:56)
[2020-12-03 06:19] LABS: Basophils # 0.1 10^3/uL (0.0-0.1); Basophils % 0.6 %; Eosinophils # 0.2 10^3/uL (0.0-0.8); Eosinophils % 2.3 %; Hematocrit 31.8 % (37.0-47.0); Hemoglobin 10.5 g/dL (11.5-15.3); Lymphocytes # 0.8 10^3/uL (0.8-4.8); Lymphocytes % 8.4 %; Mean Corpuscular Hemoglobin 32.2 pg (28.0-34.0); Mean Corpuscular Volume 97.5 fl (81-99); Mean Platelet Volume 10.2 fL (7.4-10.4); Monocytes % 9.7 %; Neutrophils # 7.76 10^3/uL (1.8-7.7); Neutrophils % 78.6 %; Nucleated Red Blood Cells % 0 %; Platelet Count 143 10^3/cmm (130-400); Red Blood Count 3.26 10^6/uL (4.1-5.3); Red Cell Distribution Width 12.6 % (12.1-15.1); White Blood Count 9.9 10^3/uL (4.0-10.0)
[2020-12-03 06:38] LABS: Estmated Average Glucose 97
[2020-12-03 06:41] LABS: Chol HDL Ratio 2.23 mg/dL (0.0-4.40); Cholesterol 192 mg/dL (0-200); HDL Cholesterol 86 mg/dL (60-100); LDL Cholesterol Calculated 96 mg/dL (50-129); Triglycerides 52 mg/dL (0-150); VLDL Cholestrol Calculation 10 mg/dL (0-30)
[2020-12-03 06:42] LABS: Alanine Aminotransferase 16 U/L (0-33); Albumin Level 3.5 g/dL (3.5-5.2); Alkaline Phosphatase 47 IU/L (35-105); Anion Gap 14.7 (5-19); Aspartate Amino Transferase 20 U/L (0-32); Blood Urea Nitrogen 20 mg/dL (8-23); Calcium 8.7 mg/dL (8.5-10.5); Carbon Dioxide 26 mmol/L (22-29); Chloride 105 mmol/L (98-107); Globulin 2.7 g/dL (1.3-4.6); Glucose 92 mg/dL (65-115); Magnesium 1.6 mg/dL (1.7-2.3); Osmolality Calculated 294 mOsm/kg (285-295); Phosphorus 3.8 mg/dL (2.5-4.5); Potassium 4.7 mmol/L (3.5-5.1); Sodium 141 mmol/L (136-145); Total Bilirubin 0.6 mg/dL (0.15-1.2); Total Protein 6.2 g/dL (6.6-8.7)
--- NOTE | 2020-12-03 09:37 | PC.CHAP ---
Pastoral Care Encounter/Spiritual Assessment Type of Contact [] Declined supervisor rod placing visit [] Patient/Family/Request visit [] Outpatient visit [] Follow-up visit [] Physician referral [] Code/Alert [x] Routine visit [] Staff referral [] Actively dying [x] Patient sleeping [] Family support [] [] Out of room [] Palliative care [] [] Receiving care in room [] Pre-surgical visit [] Trauma [] Long length of stay [] ICU visit [] Other: Relational/Emotional Strength [] Patient feels connected with others/family/visitors/staff [] Distress [] Loneliness/isolation [] Abandonment Spirituality of Patient [] Person of [place] [] Attends Congregational of their [place] [] Believes in Prayer [] Reads Bible or Sikhism materials [] There are Spiritual issues to be addressed Bow Maker Production Interventions [] Prayer [] Active listening [] Non-anxious presence [] Spiritual/emotional support [] Crisis/trauma care [] Spiritual counseling [] Bereavement support [] Provided bereavement packet [] Provided Bible/devotional materials [] Provided toy/stuffed animal, coloring book to patient or family member [] Provided Communion [] Anointing/[place] [] Salvation [] Completed spiritual assessment [] Other: Impact on Illness or Injury [] Angry [] Fearful [] Anxious [] Often cries [] Exhaustion [] Unable to work [] Unable to attend yarsani [] Unable to walk/stand [] Unable to read [] Unable to drive [] Unable to eat/drink [] Unable to sleep [] Unable to be with family [] Patient intubated [] Other: Summary Time spent with patient
[2020-12-03] MEDS: ferrous gluconate 324 mg Tablet PO ×2 (10:10→17:58)
[2020-12-03] MEDS: amlodipine 5 mg Tablet PO (10:10)
[2020-12-03] MEDS: metoprolol tartrate 25 mg Tablet PO ×2 (10:11→20:50)
[2020-12-03] MEDS: morphine 4 mg/mL SDV 1 mL 2 MG IVP ×3 (10:14→21:12)
--- NOTE | 2020-12-03 12:58 | P.PN_ITS ---
Subjective Subjective: Interval history: No acute events overnight. Complaining of mild pain on examination today. States she would want 1 for family members stay with her overnight if possible. Denies any headache. Plan for ORIF later in the afternoon today. Vitals/I&O/Wt Last Vital Signs Temp 98.1 F 12/03/20 11:29 Pulse 76 12/03/20 11:29 Resp 16 12/03/20 11:29 BP 162/76 12/03/20 11:29 Pulse Ox 97 12/03/20 11:29 12/02/20 12/03/20 12/03/20 22:59 06:59 14:59 Output Total 600 / 600 Balance -600 / -600 Weight last 48 hrs Weight 58.468 kg Weight 55.338 kg Weight 55.338 kg Physical Exam Narrative: EXAM NARRATIVE: General: No acute distress, AO x3, HEENT: PERRLA, pupils bilaterally equal and reactive Chest: Normal vesicular breath sounds, no added sounds, equal good air entry bi laterally CVS: S1-S2 regular, no murmurs, no tachycardia, no gallops, no rubs Abdomen: Soft, nontender, no organomegaly, bowel sounds present Neuro: No focal deficits, no facial deformity, AO x3, power 5/5 in all limbs Urinary Catheter Management^: Pineda: Cath Placed During This Visit: yes Reason for Continuing Indwelling Catheter: Other Urinary Catheter Date of Insertion: 12/02/20 Urinary Catheter Time of Insertion: 15:23 Data : 12/03/20 05:58 12/03/20 05:58 A&P Assessment and plan (1) Closed displaced fracture of right femoral neck: Status: Acute (2) Hypertension: Status: Acute (3) Anemia: Status: Acute Qualifiers: Anemia type: unspecified type Qualified Code(s): D64.9 - Anemia, unspecified (4) Chronic kidney disease: Status: Acute (5) Fall: Status: Acute Additional A&P Information Fall: Mechanical. Check CT head. Closed hip fracture: Orthopedics has been consulted. Physical therapy, perioperative antibiotics, anticoagulation as per orthopedics team. Morphine 2 mg every 4 hours as needed for pain. We will try to avoid overmedication. Monitor hemoglobin postoperatively. Vitamin D levels, PTH level. Start on oral vitamin D supplementation. Hypertension: Goal blood pressure less than 140/90 mmHg. Increase amlodipine to 10 mg daily. Continue with metoprolol 5 mg twice daily. Chronic kidney disease: Most likely this is her baseline. Creatinine 1.2. For now continue normal saline 50 cc/h. No electrolyte normality. Check BMP daily. Anemia: Do not have baseline. Hemoglobin stable. Iron panel consistent with severe iron deficiency anemia. Start on oral iron supplementation. CODE STATUS: Discussed in detail with patient and significant other at bedside. Full code for now. Protonix for PUD prophylaxis. SCDs for DVT prophylaxis. Cardiac diet, n.p.o. after midnight. Attestations Medical Necessity Statement*: Requires further hospital for management of right hip fracture requiring ORIF. Time Spent in Patient Care: Greater than 35 minutes (>than 50% of time spen t in counselling and/or direct pt care on unit) . Coding Level of Care Code Acute Regional Sales Representative for [facility] Fwd Diagnoses Closed displaced fracture of right femoral neck S72.001A Hypertension I10 Anemia D64.9 Anemia type: unspecified type Chronic kidney disease N18.9 Fall W19.XXXA
--- NOTE | 2020-12-03 14:28 | P.ANESASSM_ITS ---
Pre-Anesthetic Assessment Pre-Anesthetic Assessment: Height/Weight: Height 1.7 m Weight 58.468 kg Temp Pulse Resp BP Pulse Ox 98.1 F 76 16 162/76 97 12/03/20 11:29 12/03/20 11:29 12/03/20 11:29 12/03/20 11:29 12/03/20 11:29 Preop Diagnosis: Hip fracture Proposed Procedure: Operation Date: 12/03/20 14:40 Proposed Procedures p Hemiarthroplasty Hip(Right) - Ramna Benitez MD Familial anesthetic complications: none Was Beta Shantelle taken within 24 hours: N/A Was Clonidine taken within 24 hours: N/A Last intake: > 8 hrs Social: Social History: No alcohol and No tobacco Exam: Pre-Anes Outpt Exam: alert, oriented x 3, clear to auscultation bilaterally and regular rate & rhythm Airway: Cervical ROM: WNL MP: 3 Dentition: Full CV/HEM: CV/HEM: Anemia : : Chronic renal Insufficiency Anesthetic Plan: ASA status: 2 Anesthesia: General Other: patient declines spinal Risk of > 500 ml blood loss (7ml/kg in children): Yes, adequate IV access and fluids planned Meds/Allergies Current Medications: Current Medications Generic Name Dose Route Start Last Admin Trade Name Freq PRN Reason Stop Dose Admin Amlodipine Besylat e 5 mg 12/03/20 09:00 12/03/20 10:10 Amlodipine 5 Mg Tablet PO 5 mg DAILY RENNY Administration Famotidine 20 mg 12/02/20 16:00 12/03/20 03:56 Famotidine 20 Mg /2 Ml Inj IVP 20 mg Q12H RENNY Administration Ferrous Gluconate 324 mg 12/02/20 18:00 12/03/20 10:10 Ferrous Gluconat e 324 Mg Tablet PO 324 mg BIDWM RENNY Administration Potassium Chloride /Sodium Chloride 20 meq in 1,000 m ls @ 50 mls/hr 12/02/20 19:21 12/02/20 21:53 Sodium Chlor 0.9 % + Kcl 20 Meq IV 50 mls/hr .Q20H RENNY Administration Metoprolol Tartrat e 25 mg 12/02/20 21:00 12/03/20 10:11 Metoprolol Tartr ate 25 Mg Tablet PO 25 mg BID@0900,2100 RENNY Administration Morphine Sulfate 2 mg 12/02/20 19:21 12/03/20 10:14 Morphine 4 Mg/Ml Sdv 1 Ml IVP 2 mg Q4H PRN Administration SEVERE PAIN PFSH Anesthesia PFSH: Medical History (Updated 12/03/20 @ 13:02 by Bolivar Gamboa MD) No significant family history Surgical History (Updated 12/02/20 @ 19:12 by Bolivar Gamboa MD) No significant past surgical history Family History (Updated 12/02/20 @ 19:13 by Bolivar Gamboa MD) Other CAD (coronary artery disease) Cancer Social History (Updated 12/02/20 @ 19:13 by Bolivar Gamboa MD) Smoking and tobacco status: former smoker Alcohol intake: never Adopted: No Caregiver/support person: Yes Lives independently: Yes Household members: spouse Housing: House Data Anesthesia CBC & Chem 7: 12/03/20 05:58 12/03/20 05:58 Other Labs: Laboratory Results - last 48 hr 12/02/20 12/02/20 12/02/20 13:49 13:49 13:49 WBC 9.9 RBC 3.16 L Hgb 10.0 L Hct 30.2 L MCV 95.6 MCH 31.6 MCHC 33.1 RDW 12.6 Plt Count 144 MPV 10.3 Neut % (Auto) 80.9 Lymph % (Auto) 6.4 [place] % (Auto) 11.7 Eos % (Auto) 0.3 Baso % (Auto) 0.2 Neut # (Auto) 8.03 H Lymph # (Auto) 0.6 L [place] # (Auto) 1.2 H Eos # (Auto) 0.0 Baso # (Auto) 0.0 Nucleated RBC % (auto) 0 Nucleated RBCs # 0.0 PT INR Sodium 139 Potassium 4.1 Chloride 104 Carbon Dioxide 25 Anion Gap 14.1 BUN 23 Creatinine 1.2 H GFR Calculation Not Reportable Glucose 118 H Estimat Average Glucose Hemoglobin A1c Calculated Osmolality 293 Calcium 8.3 L Phosphorus Magnesium Iron TIBC % Saturation Unsat Iron Binding Ferritin Total Bilirubin 0.4 AST 18 ALT 16 Alkaline Phosphatase 46 NT-Pro-B Natriuret Pep 301 Total Protein 6.1 L Albumin 3.5 Globulin 2.6 Triglycerides Cholesterol LDL Cholesterol, Calc Total VLDL Cholesterol HDL Cholesterol Cholesterol/HDL Ratio Vitamin B12 25-OH Vitamin D Total Folate TSH 1.81 PTH Intact Calcium (PTH Intact) Urine Color Urine Appearance Urine pH Ur Specific [place] Urine Protein Urine Glucose (UA) Urine Ketones Urine Blood Urine Nitrate Urine Bilirubin Urine Urobilinogen Ur Leukocyte Esterase Urine RBC Urine WBC Ur Eosinophil Smear Ur Squamous Epith Cells Amorphous Sediment Urine Bacteria Urine Eosinophils Ur Random Sodium Ur Random Potassium Ur Random Chloride Urine Creatinine SARS-CoV-2 Ag (Rapid) 12/02/20 12/02/20 12/02/20 13:49 13:49 13:49 WBC RBC Hgb Hct MCV MCH MCHC RDW Plt Count MPV Neut % (Auto) Lymph % (Auto) [place] % (Auto) Eos % (Auto) Baso % (Auto) Neut # (Auto) Lymph # (Auto) [place] # (Auto) Eos # (Auto) Baso # (Auto) Nucleated RBC % (auto) Nucleated RBCs # PT 13.50 INR 1.00 Sodium Potassium Chloride Carbon Dioxide Anion Gap BUN Creatinine GFR Calculation Glucose Estimat Average Glucose Hemoglobin A1c Calculated Osmolality Calcium Phosphorus Magnesium Iron 18 L TIBC 211 % Saturation 8.5 L Unsat Iron Binding 193 Ferritin 113 Total Bilirubin AST ALT Alkaline Phosphatase NT-Pro-B Natriuret Pep Total Protein Albumin Globulin Triglycerides Cholesterol LDL Cholesterol, Calc Total VLDL Cholesterol HDL Cholesterol Cholesterol/HDL Ratio Vitamin B12 865 25-OH Vitamin D Total 31 Folate TSH PTH Intact 37.9 Calcium (PTH Intact) 8.0 L Urine Color Urine Appearance Urine pH Ur Specific [place] Urine Protein Urine Glucose (UA) Urine Ketones Urine Blood Urine Nitrate Urine Bilirubin Urine Urobilinogen Ur Leukocyte Esterase Urine RBC Urine WBC Ur Eosinophil Smear Ur Squamous Epith Cells Amorphous Sediment Urine Bacteria Urine Eosinophils Ur Random Sodium Ur Random Potassium Ur Random Chloride Urine Creatinine SARS-CoV-2 Ag (Rapid) 12/02/20 12/02/20 12/02/20 13:49 15:17 15:17 WBC RBC Hgb Hct MCV MCH MCHC RDW Plt Count MPV Neut % (Auto) Lymph % (Auto) [place] % (Auto) Eos % (Auto) Baso % (Auto) Neut # (Auto) Lymph # (Auto) [place] # (Auto) Eos # (Auto) Baso # (Auto) Nucleated RBC % (auto) Nucleated RBCs # PT INR Sodium Potassium Chloride Carbon Dioxide Anion Gap BUN Creatinine GFR Calculation Glucose Estimat Average Glucose Hemoglobin A1c Calculated Osmolality Calcium Phosphorus Magnesium Iron TIBC % Saturation Unsat Iron Binding Ferritin Total Bilirubin AST ALT Alkaline Phosphatase NT-Pro-B Natriuret Pep Total Protein Albumin Globulin Triglycerides Cholesterol LDL Cholesterol, Calc Total VLDL Cholesterol HDL Cholesterol Cholesterol/HDL Ratio Vitamin B12 25-OH Vitamin D Total Folate 18.8 TSH PTH Intact Calcium (PTH Intact) Urine Color Yellow Urine Appearance Clear Urine pH 7 Ur Specific [place] 1.005 Urine Protein Trace Urine Glucose (UA) Norm Urine Ketones Negative Urine Blood 2+ H Urine Nitrate Negative Urine Bilirubin Neg Urine Urobilinogen Norm Ur Leukocyte Esterase Negative Urine RBC 5-10 H Urine WBC 5-10 H Ur Eosinophil Smear 0 Ur Squamous Epith Cells 0-4 H Amorphous Sediment Not Reportable Urine Bacteria 2+ H Urine Eosinophils No eosinophils seen Ur Random Sodium Ur Random Potassium Ur Random Chloride Urine Creatinine SARS-CoV-2 Ag (Rapid) 12/02/20 12/02/20 12/03/20 15:17 16:10 05:58 WBC RBC Hgb Hct MCV MCH MCHC RDW Plt Count MPV Neut % (Auto) Lymph % (Auto) [place] % (Auto) Eos % (Auto) Baso % (Auto) Neut # (Auto) Lymph # (Auto) [place] # (Auto) Eos # (Auto) Baso # (Auto) Nucleated RBC % (auto) Nucleated RBCs # PT INR Sodium Potassium Chloride Carbon Dioxide Anion Gap BUN Creatinine GFR Calculation Glucose Estimat Average Glucose 97 Hemoglobin A1c 5.0 Calculated Osmolality Calcium Phosphorus Magnesium Iron TIBC % Saturation Unsat Iron Binding Ferritin Total Bilirubin AST ALT Alkaline Phosphatase NT-Pro-B Natriuret Pep Total Protein Albumin Globulin Triglycerides Cholesterol LDL Cholesterol, Calc Total VLDL Cholesterol HDL Cholesterol Cholesterol/HDL Ratio Vitamin B12 25-OH Vitamin D Total Folate TSH PTH Intact Calcium (PTH Intact) Urine Color Urine Appearance Urine pH Ur Specific [place] Urine Protein Urine Glucose (UA) Urine Ketones Urine Blood Urine Nitrate Urine Bilirubin Urine Urobilinogen Ur Leukocyte Esterase Urine RBC Urine WBC Ur Eosinophil Smear Ur Squamous Epith Cells Amorphous Sediment Urine Bacteria Urine Eosinophils Ur Random Sodium 79 Ur Random Potassium 22 Ur Random Chloride 67 Urine Creatinine 41 SARS-CoV-2 Ag (Rapid) Negative 12/03/20 12/03/20 12/03/20 05:58 05:58 05:58 WBC 9.9 RBC 3.26 L Hgb 10.5 L Hct 31.8 L MCV 97.5 MCH 32.2 MCHC 33.0 RDW 12.6 Plt Count 143 MPV 10.2 Neut % (Auto) 78.6 Lymph % (Auto) 8.4 [place] % (Auto) 9.7 Eos % (Auto) 2.3 Baso % (Auto) 0.6 Neut # (Auto) 7.76 H Lymph # (Auto) 0.8 [place] # (Auto) 1.0 H Eos # (Auto) 0.2 Baso # (Auto) 0.1 Nucleated RBC % (auto) 0 Nucleated RBCs # 0.0 PT INR Sodium 141 Potassium 4.7 Chloride 105 Carbon Dioxide 26 Anion Gap 14.7 BUN 20 Creatinine 1.2 H GFR Calculation Not Reportable Glucose 92 Estimat Average Glucose Hemoglobin A1c Calculated Osmolality 294 Calcium 8.7 Phosphorus 3.8 Magnesium 1.6 L Iron TIBC % Saturation Unsat Iron Binding Ferritin Total Bilirubin 0.6 AST 20 ALT 16 Alkaline Phosphatase 47 NT-Pro-B Natriuret Pep Total Protein 6.2 L Albumin 3.5 Globulin 2.7 Triglycerides 52 Cholesterol 192 LDL Cholesterol, Calc 96 Total VLDL Cholesterol 10 HDL Cholesterol 86 Cholesterol/HDL Ratio 2.23 Vitamin B12 25-OH Vitamin D Total Folate TSH PTH Intact Calcium (PTH Intact) Urine Color Urine Appearance Urine pH Ur Specific [place] Urine Protein Urine Glucose (UA) Urine Ketones Urine Blood Urine Nitrate Urine Bilirubin Urine Urobilinogen Ur Leukocyte Esterase Urine RBC Urine WBC Ur Eosinophil Smear Ur Squamous Epith Cells Amorphous Sediment Urine Bacteria Urine Eosinophils Ur Random Sodium Ur Random Potassium Ur Random Chloride Urine Creatinine SARS-CoV-2 Ag (Rapid) Cardiac Studies: No Data to Display
[2020-12-03] MEDS: sodium chloride 0.9% 1,000 ML 30 ML IV (14:42)
[2020-12-03] MEDS: tranexamic acid 1,000 mg/10mL SDV 2000 MG IRRIGATION (15:44)
--- NOTE | 2020-12-03 16:38 | XR_ITS ---
WS: [id number] Right hip, AP view, 12/03/2020 Clinical Data: Postop hemiarthroplasty Comparison: Right hip, 12/02/2020. Findings: A hemiarthroplasty of the right hip has been performed. There is air in the operative site from the r ecent surgery. The proximal femoral medullary jasmyn is in good position. XR/XR hip RT 1V wo/w pel [id number] Impression: Hemiarthroplasty of the right hip.
--- NOTE | 2020-12-03 16:39 | P.OP_ITS ---
Operative Report Date of procedure: December 03, 2020 Pre-op Diagnosis: Placed right femoral neck fracture Post-op diagnosis: same Post-op Findings: Same Procedure Done: Right bipolar arthroplasty hip Pathology: none sent Surgeon: Raman Benitez Anesthesia: General Estimated blood loss (mL): 100 Findings: Patient displaced fracture of the right femoral neck Condition: stable Disposition: PACU Procedure: The patient was taken to the operating room and a general anesthesia was provided by the anesthesia service. They were given 2 g of Ancef. and p ositioned in the lateral position with the hip exposed. A 10 cm long incision was made over the greater trochanter with a scalpel blade. Dissection was carried down through the fascia brittni to the greater trochanter. The anterior two thirds of gluteus medius and minimus were elevated off the greater trochanter with electrocautery. The capsule was divided T like fashion. The hip was externally rotated and the neck brought up into the wound. An oscillating saw was really used to resect the neck just above the level of the lesser trochanter. The femoral head was removed and the acetabulumt sized to a 50 mm bipolar head. Sequential reaming and broaching of the canal was accomplished up to a size 8. A size 8 [place] Securefit CARO stem was press fit into place. A trial reduction with a -3 mm neck provided excellent stability. The final head and neck were placed and the hip reduced. The anterior capsule were reapproximated with 1 Ethibond. The gluteus medius and minimus were repai red through the greater trochanter with 5 Ethibond and reinforced with 1 Ethibond. The fascia brittni was closed with 1 Stratafix. The subcutaneous tissues were closed with 2-0 Stratafixl. The skin was closed with a running 4-0 Stratafix. The incision was covered with a Prineo dressing. Sterile Opsitedressings were applied. The patient was placed in abduction pillow and taken recovery room in stable condition. [place] 1) Securefit CARO collored stem, size [] 2) [] Bipolar femoral head 3) 28mm/[] neck length femoral head
[2020-12-03] MEDS: sodium chloride 0.9% 1,000 ML 100 ML IV (17:54)
[2020-12-03] MEDS: cholecalciferol (vitamin D3) 5,000 unit Tablet 5000 UNIT PO (17:58)
[2020-12-03] MEDS: sennosides-docusate Tablet 2 TAB PO (17:58)
[2020-12-03] MEDS: mupirocin oint 22 gm 1 APPLIC NASAL (18:15)
[2020-12-03] MEDS: chlorhexidine gluconate 0.12% Btl 473 mL 30 ML MUCOUS MEM (20:53)
[2020-12-04] MEDS: sodium chloride 0.9% 1,000 ML 100 ML IV (03:32)
[2020-12-04 04:25] VITALS: RESP 16; O2SAT 96
[2020-12-04] MEDS: famotidine 20 mg/2 mL INJ IVP ×2 (04:25→17:26)
[2020-12-04] MEDS: morphine 4 mg/mL SDV 1 mL 2 MG IVP (04:25)
[2020-12-04 05:29] LABS: Basophils % 0.5 %; Eosinophils % 0.4 %; Hematocrit 29.6 % (37.0-47.0); Hemoglobin 9.7 g/dL (11.5-15.3); Lymphocytes # 0.6 10^3/uL (0.8-4.8); Lymphocytes % 7.5 %; Mean Corpuscular HGB Conc 32.8 g/dL (30.0-36.0); Mean Corpuscular Hemoglobin 31.2 pg (28.0-34.0); Mean Corpuscular Volume 95.2 fl (81-99); Mean Platelet Volume 10.7 fL (7.4-10.4); Monocytes % 12.3 %; Neutrophils % 78.8 %; Nucleated Red Blood Cells % 0 %; Platelet Count 121 10^3/cmm (130-400); Red Blood Count 3.11 10^6/uL (4.1-5.3); Red Cell Distribution Width 12.5 % (12.1-15.1); White Blood Count 8.2 10^3/uL (4.0-10.0)
[2020-12-04 05:53] LABS: Anion Gap 14.4 (5-19); Blood Urea Nitrogen 23 mg/dL (8-23); Carbon Dioxide 24 mmol/L (22-29); Chloride 103 mmol/L (98-107); Glucose 117 mg/dL (65-115); Osmolality Calculated 289 mOsm/kg (285-295); Potassium 4.4 mmol/L (3.5-5.1); Sodium 137 mmol/L (136-145)
[2020-12-04] MEDS: ferrous gluconate 324 mg Tablet PO ×2 (09:17→17:26)
[2020-12-04] MEDS: cholecalciferol (vitamin D3) 5,000 unit Tablet 5000 UNIT PO (09:17)
[2020-12-04] MEDS: amlodipine 5 mg Tablet PO (09:17)
[2020-12-04] MEDS: metoprolol tartrate 25 mg Tablet PO ×2 (09:17→21:08)
[2020-12-04] MEDS: sennosides-docusate Tablet 2 TAB PO ×2 (09:17→17:26)
[2020-12-04] MEDS: mupirocin oint 22 gm 1 APPLIC NASAL ×2 (09:25→17:38)
[2020-12-04] MEDS: HYDROcodone-acetaminophen 5-325 mg Tablet 1 TAB PO (09:25)
[2020-12-04] MEDS: chlorhexidine gluconate 0.12% Btl 473 mL 30 ML MUCOUS MEM ×4 (09:28→21:08)
[2020-12-04] MEDS: sodium chlor 0.9% + KCl 20 mEq 20 MEQ/1,000 ML BAG 50 MEQ IV (10:53)
--- NOTE | 2020-12-04 13:23 | P.PN_ITS ---
Subjective Subjective: Interval history: No acute events overnight. POD1. Sitting comfortably in chair on exam with daughter bedside. Working with PT. Daughter states that patient has chronic drooping of eyes. Asking if she can go today. We discussed that for now we should get physical therapy evaluation and see how patient is doing with the same before planning for discharge. Patient and gayla ent daughter stated they would not want to go to SNF and would like to go home with home health. Vitals/I&O/Wt Last Vital Signs Temp 97.8 F 12/03/20 23:51 Pulse 72 12/03/20 23:51 Resp 16 12/04/20 04:25 BP 148/72 12/03/20 23:51 Pulse Ox 96 12/04/20 04:25 12/03/20 12/04/20 12/04/20 22:59 06:59 14:59 Intake Total 1170 / 1170 2023.333 / 3193.333 806.667 / 806.667 Output Total 200 / 200 100 / 100 Balance 970 / 970 2023.333 / 2993.333 706.667 / 706.667 Weight last 48 hrs Weight 58.468 kg Weight 55.338 kg Weight 55.338 kg Physical Exam Narrative: EXAM NARRATIVE: General: No acute distress, AO x3, HEENT: PERRLA, pupils bilaterally equal and reactive Chest: Normal vesicular breath sounds, no added sounds, equal good air entry bilaterally CVS: S1-S2 regular, no murmurs, no tachycardia, no gallops, no rubs Abdomen: Soft, nontender, no organomegaly, bowel sounds present Neuro: No focal deficits, no facial deformity, AO x3, power 5/5 in all limbs Urinary Catheter Management^: Pineda: Cath Placed During This Visit: yes, but has since been removed by the nurse Reason for Continuing Indwelling Catheter: Perioperative Use in Selected Surgeries Urinary Catheter Date of Insertion: 12/02/20 Urinary Catheter Time of Insertion: 15:23 Date Urinary Catheter Removed: 12/04/20 Time Urinary Catheter Discontinued: 06:40 Data : 12/04/20 04:54 12/04/20 04:54 Micro: Microbiology 12/02/20 15:17 Urine Culture - Preliminary Urine,Clean Catch Gram Negative Rods A&P Assessment and plan (1) Closed displaced fracture of right femoral neck: Status: Acute (2) Hypertension: Status: Acute (3) Anemia: Status: Acute Qualifiers: Anemia type: unspecified type Qualified Code(s): D64.9 - Anemia, unspecified (4) Chronic kidney disease: Status: Acute (5) Fall: Status: Acute Additional A&P Information Fall: Mechanical. Check CT head. Closed hip fracture: Postoperative day 1. Physical therapy, perioperative antibiotics, anticoagulation as per orthopedics team. [place] 1 tablet every 8 hours as needed. Flexeril 5 mg every 8 hours as needed.. Monitor hemoglobin postoperatively. Vitamin D levels, PTH level. Start on oral vitamin D supplementation. Hypertension: Goal blood pressure less than 140/90 mmHg. Continue with amlodipine 5 mg daily, metoprolol 25 mg twice daily. Chronic kidney disease: Most likely this is her baseline. Creatinine 1.2. Patient eating well. Stop IV fluids. No electrolyte normality. Check BMP daily. Anemia: Do not have baseline. Hemoglobin stable. Iron panel consistent with severe iron deficiency anemia. Continue with oral iron supplementation. UTI: Urine culture positive for gram-negative rods. No active signs of UTI. For now levofloxacin 500 every 48 hour for 5-day course. CODE STATUS: Discussed in detail with patient and significant other at bedside. Full code for now. Protonix for PUD prophylaxis. SCDs for DVT prophylaxis. Lovenox 30 mg subcu daily. Cardiac diet. Discharge planning: Home with home health for further physical therapy. Attestations Medical Necessity Statement*: Requires further hospitalization for plan for ORIF by safe discharge planning is sought. Time Spent in Patient Care: Greater than 35 minutes (>than 50% of time spent in counselling and/or direct pt care on unit) . Coding Level of Care Code Acute Poster for [facility] Fwd Diagnoses Closed displaced fracture of right femoral neck S72.001A Hypertension I10 Anemia D64.9 Anemia type: unspecified type Chronic kidney disease N18.9 Fall W19.XXXA
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
[2020-12-04] MEDS: enoxaparin 30 mg/0.3 mL Syringe SUBCUT (17:26)
[2020-12-04] MEDS: levoFLOXacin 500 mg Tablet PO (17:27)
[2020-12-04 20:17] VITALS: BP 139/75; PULSE 81; RESP 16; TEMP 36.8; O2SAT 93
[2020-12-04] MEDS: acetaminophen 325 mg Tablet 650 MG PO (22:05)
[2020-12-05 00:42] VITALS: BP 174/84; PULSE 86; RESP 17; TEMP 36.7; O2SAT 92
[2020-12-05] MEDS: famotidine 20 mg/2 mL INJ IVP (04:29)
[2020-12-05 05:20] VITALS: BP 162/81; PULSE 84; RESP 17; TEMP 36.7; O2SAT 91
[2020-12-05 06:29] LABS: Basophils % 0.3 %; Eosinophils % 0.3 %; Hematocrit 26.9 % (37.0-47.0); Lymphocytes # 0.9 10^3/uL (0.8-4.8); Lymphocytes % 10.4 %; Mean Corpuscular HGB Conc 33.5 g/dL (30.0-36.0); Mean Corpuscular Hemoglobin 31.7 pg (28.0-34.0); Mean Corpuscular Volume 94.7 fl (81-99); Monocytes # 1.5 10^3/uL (0.2-0.9); Monocytes % 17.1 %; Neutrophils # 6.19 10^3/uL (1.8-7.7); Neutrophils % 71.6 %; Nucleated Red Blood Cells % 0 %; Platelet Count 99 10^3/cmm (130-400); Red Blood Count 2.84 10^6/uL (4.1-5.3); Red Cell Distribution Width 12.7 % (12.1-15.1); White Blood Count 8.7 10^3/uL (4.0-10.0)
[2020-12-05 07:18] VITALS: BP 154/77; PULSE 73; RESP 16; TEMP 36.6; O2SAT 97
[2020-12-05] MEDS: acetaminophen 325 mg Tablet 650 MG PO (07:24)
--- NOTE | 2020-12-05 07:56 | PC.NURSE ---
I attempted to go into this patient's room and do a physical assessment this morning. The patient allowed me to auscultate her heart and lungs, however, when asked if I could assess the site where her dressing is placed, the patient's daughter refused. My clinical instructor came with me about 20 minutes later to ask if I would be allowed to do a physical assessment on the patient later today, and the patient's daughter refused. She stated that due to COVID-19, she does not want more people than necessary in her mother's room.
--- NOTE | 2020-12-05 08:07 | PC.NURSE ---
This nurse discussed with patient and daughter at bedside care for the day and if allowed would student nurse be able to assess, care and administer medications to patient. Patients daughter refused due to not wanting exposure to Covid.
[2020-12-05] MEDS: sennosides-docusate Tablet 2 TAB PO (08:38)
[2020-12-05] MEDS: ferrous gluconate 324 mg Tablet PO (08:39)
[2020-12-05] MEDS: amlodipine 5 mg Tablet PO (08:39)
[2020-12-05] MEDS: cyclobenzaprine 10 mg Tablet 5 MG PO (08:39)
[2020-12-05] MEDS: cholecalciferol (vitamin D3) 5,000 unit Tablet 5000 UNIT PO (08:39)
[2020-12-05] MEDS: metoprolol tartrate 25 mg Tablet PO (08:39)
--- NOTE | 2020-12-05 11:30 | PC.OT ---
OT TREATMENT ATTEMPTED. PATIENT IS SLEEPING SOUNDLY/SNORING. WILL ATTEMPT AGAIN AT A LATER TIME.
--- NOTE | 2020-12-05 11:38 | PM.DCS ---
Discharge Providers Date of Admission: 12/02/20 16:53 Date of Discharge: December 05, 2020 Attending Provider at Admission: Bolivar Gamboa MD Attending Provider at Discharge: Bolivar Gamboa MD Diagnoses at Discharge Discharge Diagnosis (1) Closed displaced fracture of right femoral neck: Status: Resolved (2) Postoperative state: Status: Acute Reason for Visit Reason for Visit: FALL/ SHORTENING AND ROTATION Hospital Course Hospital Course Cherelle Astorga is a 80 year old female with no significant PMH who is a visiting home from [facility]. She was staying with her sister in [place]. She apparently bent over to pet a cat when she fell landing on her right side with immediate pain and inability to bear weight. She was transferred here by EMS for radiographs revealed a displaced right femoral neck fracture. She is with her . She apparently uses no ambulatory aids prior to this. She denies any extremity or head injury. In the ER patient was found to have high blood pressure going up to 210 systolic. Patient denies any history of hypertension in the past. States she checks her blood pressure occasionally at home and usually numbers are less than 140. She states she follows up with a primary care provider every 6 months. She has not been vaccinated for COVID-19 though denies any known contact. Her spouse/significant other though was vaccinated for COVID-19. Blood work in the ER was significant for Hemoglobin of 10, creatinine of 1.2, calcium of 8.3, UA negative for any signs of infection with lower limb x-ray as below. Patient under the hospital for further management. Orthopedics was consulted and she underwent ORIF on December 03. She tolerated the procedure well. Postoperatively she is working well with physical therapy and hemoglobin has remained stable. During hospitalization she was found to have persistent high blood pressure for which she started on antihypertensives and will uptitrate accordingly. She was also found to have gram-negative rods in urine culture so was started on 5-day course of levofloxacin. She was found to have AIMEE with creatinine of 1.2 though we do not have any baseline and creatinine remained stable. It is possible patient has CKD secondary to longstanding hypertension. She is been discharged in hemodynamically stable condition with home health for further rehabitation with advised to follow-up with her primary care provider within next 1 week with a blood pressure diary and with Dr. Benitez on set time. Physical Exam Narrative: EXAM NARRATIVE: General: No acute distress, AO x3, HEENT: PERRLA, pupils bilaterally equal and reactive Chest: Normal vesicular breath sounds, no added sounds, equal good air entry bilaterally CVS: S1-S2 regular, no murmurs, no tachycardia, no gallops, no rubs Abdomen: Soft, nontender, no organomegaly, bowel sounds present Neuro: No focal deficits, no facial deformity, AO x3, power 5/5 in all limbs Urinary Catheter Management^: Pineda: Cath Placed During This Visit: yes, but has since been removed by the nurse Reason for Continuing Indwelling Catheter: Perioperative Use in Selected Surgeries Urinary Catheter Date of Insertion: 12/02/20 Urinary Catheter Time of Insertion: 15:23 Date Urinary Catheter Removed: 12/04/20 Time Urinary Catheter Discontinued: 06:40 Discharge Data Data Completed and Pending: Completed Studies During Hospitalization Category Date Time Status XR chest 1V omar ble [id number] Urgent Exams 12/02/20 13:37 Completed XR hip RT 1V wo/[place] pel [id number] Routine Exams 12/03/20 16:38 Completed XR hip RT 2-3V wo /w pel* [id number] Urge nt Exams 12/02/20 13:36 Completed CV. echo complete * [id number] Routine Ultrasound 12/02/20 15:59 Completed Pending at discharge Category Date Time Status Complete Blood Co unt w/Auto AM LABS Lab 12/06/20 04:00 Ordered Vitamin D 1,25 Di hydroxy Stat Lab 12/02/20 13:49 Received Labs from last 24 hours 12/05/20 05:42 WBC 8.7 RBC 2.84 L Hgb 9.0 L Hct 26.9 L MCV 94.7 MCH 31.7 MCHC 33.5 RDW 12.7 Plt Count 99 L MPV 11.0 H Neut % (Auto) 71.6 Lymph % (Auto) 10.4 [place] % (Auto) 17.1 Eos % (Auto) 0.3 Baso % (Auto) 0.3 Neut # (Auto) 6.19 Lymph # (Auto) 0.9 [place] # (Auto) 1.5 H Eos # (Auto) 0.0 Baso # (Auto) 0.0 Nucleated RBC % (a uto) 0 Nucleated RBCs # 0.0 Addt'l Data from Hospital Stay: Laboratory Results WBC 8.7 10^3/uL (4.0- 10.0) 12/05/20 05:42 RBC 2.84 10^6/uL (4.1 -5.3) L 12/05/20 05:42 Hgb 9.0 g/dL (11.5-15 .3) L 12/05/20 05:42 Hct 26.9 % (37.0-47.0 ) L 12/05/20 05:42 MCV 94.7 fl (81-99) 12/05/20 05:42 MCH 31.7 pg (28.0-34. 0) 12/05/20 05:42 MCHC 33.5 g/dL (30.0-3 6.0) 12/05/20 05:42 RDW 12.7 % (12.1-15.1 ) 12/05/20 05:42 Plt Count 99 10^3/cmm (130- 400) L 12/05/20 05:42 MPV 11.0 fL (7.4-10.4 ) H 12/05/20 05:42 Neut % (Auto) 71.6 % 12/05/20 05:42 Lymph % (Auto) 10.4 % 12/05/20 05:42 [place] % (Auto) 17.1 % 12/05/20 05:42 Eos % (Auto) 0.3 % 12/05/20 05:42 Baso % (Auto) 0.3 % 12/05/20 05:42 Neut # (Auto) 6.19 10^3/uL (1.8 -7.7) 12/05/20 05:42 Lymph # (Auto) 0.9 10^3/uL (0.8- 4.8) 12/05/20 05:42 [place] # (Auto) 1.5 10^3/uL (0.2- 0.9) H 12/05/20 05:42 Eos # (Auto) 0.0 10^3/uL (0.0- 0.8) 12/05/20 05:42 Baso # (Auto) 0.0 10^3/uL (0.0- 0.1) 12/05/20 05:42 Nucleated RBC % (a uto) 0 % 12/05/20 05:42 Nucleated RBCs # 0.0 /100WBC 12/05/20 05:42 PT 13.50 SECONDS (12 .1-14.9) 12/02/20 13:49 INR 1.00 (0.8-1.2) 12/02/20 13:49 Sodium 137 mmol/L (136-1 45) 12/04/20 04:54 Potassium 4.4 mmol/L (3.5-5 .1) 12/04/20 04:54 Chloride 103 mmol/L (98-10 7) 12/04/20 04:54 Carbon Dioxide 24 mmol/L (22-29) 12/04/20 04:54 Anion Gap 14.4 (5-19) 12/04/20 04:54 BUN 23 mg/dL (8-23) 12/04/20 04:54 Creatinine 1.2 mg/dL (0.5-0. 9) H 12/04/20 04:54 GFR Calculation Not Reportable 12/04/20 04:54 Glucose 117 mg/dL (65-115 ) H 12/04/20 04:54 Estimat Average Gl ucose 97 12/03/20 05:58 Hemoglobin A1c 5.0 % (4.0-6.0) 12/03/20 05:58 Calculated Osmolal ity 289 mOsm/kg (285- 295) 12/04/20 04:54 Calcium 8.0 mg/dL (8.5-10 .5) L 12/04/20 04:54 Phosphorus 3.8 mg/dL (2.5-4. 5) 12/03/20 05:58 Magnesium 1.6 mg/dL (1.7-2. 3) L 12/03/20 05:58 Iron 18 ug/dL (37-145) L 12/02/20 13:49 TIBC 211 mcg/dl 12/02/20 13:49 % Saturation 8.5 % (20-50) L 12/02/20 13:49 Unsat Iron Binding 193 ug/dL (112-34 7) 12/02/20 13:49 Ferritin 113 ng/mL (15-150 ) 12/02/20 13:49 Total Bilirubin 0.6 mg/dL (0.15-1 .2) 12/03/20 05:58 AST 20 U/L (0-32) 12/03/20 05:58 ALT 16 U/L (0-33) 12/03/20 05:58 Alkaline Phosphata se 47 IU/L (35-105) 12/03/20 05:58 NT-Pro-B Natriuret Pep 301 pg/mL (0-450) 12/02/20 13:49 Total Protein 6.2 g/dL (6.6-8.7 ) L 12/03/20 05:58 Albumin 3.5 g/dL (3.5-5.2 ) 12/03/20 05:58 Globulin 2.7 g/dL (1.3-4.6 ) 12/03/20 05:58 Triglycerides 52 mg/dL (0-150) 12/03/20 05:58 Cholesterol 192 mg/dL (0-200) 12/03/20 05:58 LDL Cholesterol, C alc 96 mg/dL (50-129) 12/03/20 05:58 Total VLDL Cholest michelle 10 mg/dL (0-30) 12/03/20 05:58 HDL Cholesterol 86 mg/dL (60-100) 12/03/20 05:58 Cholesterol/HDL Ra cheyenne 2.23 mg/dL (0.0-4 .40) 12/03/20 05:58 Vitamin B12 865 pg/mL (232-12 45) 12/02/20 13:49 25-OH Vitamin D To steven 31 ng/mL (30-100) 12/02/20 13:49 Folate 18.8 ng/mL (4.8-3 7.3) 12/02/20 13:49 TSH 1.81 uIU/mL (0.27 -4.20) 12/02/20 13:49 PTH Intact 37.9 pg/mL (15-65 ) 12/02/20 13:49 Calcium (PTH Intac t) 8.0 mg/dL (8.5-10 .5) L 12/02/20 13:49 Urine Color Yellow (Yellow) 12/02/20 15:17 Urine Appearance Clear (CLEAR) 12/02/20 15:17 Urine pH 7 (5-7) 12/02/20 15:17 Ur Specific Gravit y 1.005 (1.005-1.0 30) 12/02/20 15:17 Urine Protein Trace (Negative) 12/02/20 15:17 Urine Glucose (UA) Norm (Normal) 12/02/20 15:17 Urine Ketones Negative (Negati ve) 12/02/20 15:17 Urine Blood 2+ (Negative) H 12/02/20 15:17 Urine Nitrate Negative (Negati ve) 12/02/20 15:17 Urine Bilirubin Neg (Negative) 12/02/20 15:17 Urine Urobilinogen Norm mg/dL (Negat wilbert) 12/02/20 15:17 Ur Leukocyte Tonya ase Negative (Negati ve) 12/02/20 15:17 Urine RBC 5-10 /hpf (0-2) H 12/02/20 15:17 Urine WBC 5-10 /hpf (0-5) H 12/02/20 15:17 Ur Eosinophil Smea r 0 (0-0) 12/02/20 15:17 Ur Squamous Epith Cells 0-4 /hpf (0-5) H 12/02/20 15:17 Amorphous Sediment Not Reportable 12/02/20 15:17 Urine Bacteria 2+ /hpf (NONE) H 12/02/20 15:17 Urine Eosinophils No eosinophils se en 12/02/20 15:17 Ur Random Sodium 79 mmol/L 12/02/20 15:17 Ur Random Potassiu m 22 mmol/L 12/02/20 15:17 Ur Random Chloride 67 mmol/L 12/02/20 15:17 Urine Creatinine 41 mg/dL (28-217) 12/02/20 15:17 SARS-CoV-2 Ag (Rap id) Negative (Negati ve) 12/02/20 16:10 Impressions Hip/Pelvis X-Ray 12/02/20 13:36 IMPRESSION: There is a right femoral neck fracture. If there is desire for further evaluation, a CT scan could be performed. Chest X-Ray 12/02/20 13:37 IMPRESSION: No acute findings. Hip X-Ray 12/03/20 16:38 Impression: Hemiarthroplasty of the right hip. Echocardiogram: CONCLUSIONS 1. Normal left ventricular size, systolic function and mildly increased wall thickness, with no regional wall motion abnormalities. Mild concentric left ventricular hypertrophy. Left ventricular ejection fraction is estimated at 70 %. Grade II diastolic dysfunction, moderately elevated filling pressures. 2. Normal right ventricular size and systolic function. 3. 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 4. Mild mitral and tricuspid valve regurgitation. 5. Mild pulmonary hypertension with pulmonary artery pressure estimated at 36 mm Hg. 6. No prior similar studies to compare. Vitals: Last Vital Signs Temp 97.9 F 12/05/20 07:18 Pulse 73 12/05/20 07:18 Resp 16 12/05/20 07:18 BP 154/77 12/05/20 07:18 Pulse Ox 97 12/05/20 07:18 Discharge Plan Discharge Patient Disposition: Home Health Service Condition: Stable Prescriptions: New hydrocodone-acetaminophen 5-325 mg Tablet 1 tab PO Q8H PRN (Reason: Moderate Pain) 7 Days Qty: 30 RF: 0 amlodipine 5 mg Tablet 10 mg PO DAILY 30 Days Qty: 30 RF: 0 levofloxacin 500 mg Tablet 500 mg PO Q48H 4 Days Qty: 2 RF: 0 ferrous gluconate 324 mg (37.5 mg iron) Tablet 324 mg PO BIDWM 30 Days Qty: 60 RF: 0 metoprolol succinate 50 mg capsule,sprinkle,ER 24hr 50 mg PO DAILY Qty: 30 RF: 0 enoxaparin 30 mg/0.3 mL Syringe 30 mg SUBCUT Q24H 10 Days Qty: 3 RF: 0 Continued Tyronza 3 Fish Oil 684-1,200 mg Capsule,Delayed Release(Dr/Ec) 1 cap PO DAILY RF: 0 Smooth Move Laxative 1 ea PO DAILY RF: 0 Vitamin D3 1 tab PO DAILY RF: 0 Discharge Orders: Discharge Order (Routine); Ordered 12/05/20 Ordered By: Bolivar Gamboa Other Ambulatory Orders: DME: Fabio (Order) Location: None Selected Ordered By: Bolivar Gamboa Referrals: Raman Benitez MD [Physician] - 1 month Discharge Diet: Advance as tolerated Discharge Activity: Limit activity as instructed Patient Instructions: Opioid Safety Activity Restrictions/Additional Instructions: Amlodipine and metoprolol has been added to your medication list for persistent high blood pressure Okay to shower. No soaking incision in tub Apply Ice up to 20 min/hr for pain and swelling Take Tylenol 500mg (up to 2 tabs) 3 times a day for mild pain Take hydrocodone for breakthrough pain. Exercises per physical therapy. May weight-bear as tolerated on operative hip Discharge Attestations Time Spent in Discharge Care*: greater than 30 min Specific Discharge Activities: educating patient, educating and/or supporting family/caregiver, discussing with pcp/other providers, discussing with case monitor/social workers/dc planners, documenting/other paperwork and evaluating patient/reviewing data Status at Discharge: Cognitive status at discharge: cognitively intact, Behavioral status at discharge: cooperative, Functional status at discharge: uses cane/walker Overall status at discharge: patient is progressing back to baseline Quality Metrics Clinical Quality Measures During this hospital stay, did patient experience: None Coding Level of Care Code Acute Chg FW DC note Diagnoses Closed displaced fracture of right femoral neck S72.001A Postoperative state Z98.890
[2020-12-05 12:02] VITALS: BP 136/68; PULSE 78; RESP 16; TEMP 36.8; O2SAT 93
--- NOTE | 2020-12-05 12:45 | PC.NURSE ---
Patient daughter called this nurse into her mother's room because she states that she feels like her mother is to sedated to do anything. Patient is sitting in the chair with her eyes closed but she is answering questions appropriately. Patient's daughter states, I just don't know what to do she is going to have to get around better and be more awake then this if I am going to be able to take care of her at home. Is this normal ? Should she be this tired and should I have to tell her what I need her to do? Explained to patient and daughter that it is normal to be tired after surgery. Explained to patient's daughter that she has had a busy morning. Patient did her exercises, walked and groomed herself this morning. After a surgery it is normal to be tired. Patient's daughter asked to speak to Dr. Gamboa. Dr Gamboa notified and new orders received. 1332 Dr. Gamboa at bedside to speak with patient and daughter at this time.
[2020-12-05 14:15] LABS: ABG PCO2 33.3 mmHg (35-45); ABG PH Result 7.44 (7.35-7.45); Alveolar-Arterial Oxygen Gradi 3.1 mmHg (5-10); Base Excess ABG -1.5 mmol/L (-2.0-2.0); Blood Gas Operator Identificat AMH; Blood Gas Sample Site Brachial, right; Blood Gas Sample Type Arterial; Carboxyhemoglobin 0.9 %THgb (0.4-20.1); HCO3 ABG 22.3 mmol/L (22-26); HGB O2 Sat 95.9 % (95-100); Ionized Calcium Level - ABG 1.2 mmol/L (1.1-1.4); Methemoglobin 0.8 % (0.4-1.5); Oxygen Device ROOM AIR; Oxygen Saturation ABG 97.6; PO2 ABG 83.7 mmHg (80.0-100.0); Potassium Level - ABG 3.9 mmol/L (3.5-5.0); Total Hemoglobin 9.5 g/dL (12-16)
--- NOTE | 2020-12-05 14:52 | PC.NURSE ---
In room to review discharge with patient and daughter. Patient states, I would like something for pain. Tylenol offered. Patient's daughter states, No. I just told you were are switching to Tramadol and we have Tylenol at home she can have if she needs it. I will pick the Tramadol up on my way home. Patient states, That's fine. Offered to assist patient's daughter with dressing her mom and patient states, I will let you know when I am done. This nurse and DANILO Ruby left the room at this time.
--- NOTE | 2020-12-05 14:56 | PC.CHAP ---
Pastoral Care Encounter/Spiritual Assessment Type of Contact [] Declined teaching dietitian visit [] Patient/Family/Request visit [] Outpatient visit [xx] Follow-up visit [] Physician referral [] Code/Alert [] Routine visit [] Staff referral [] Actively dying [] Patient sleeping [] Family support [] [] Out of room [] Palliative care [] [xx] Receiving care in room [] Pre-surgical visit [] Trauma [] Long length of stay [] ICU visit [xx] Other: Therapist working with patient Relational/Emotional Strength [] Patient feels connected with others/family/visitors/staff [] Distress [] Loneliness/isolation [] Abandonment Spirituality of Patient [] Person of Tayler [] Attends [employer] of their Tayler [] Believes in Prayer [] Reads Bible or Hinduism materials [] There are Spiritual issues to be addressed Implement Mechanic Interventions [] Prayer [] Active listening [] Non-anxious presence [] Spiritual/emotional support [] Crisis/trauma care [] Spiritual counseling [] Bereavement support [] Provided bereavement packet [] Provided Bible/devotional materials [] Provided toy/stuffed animal, coloring book to patient or family member [] Provided Communion [] Anointing/[place] [] Salvation [] Completed spiritual assessment [] Other: Impact on Illness or Injury [] Angry [] Fearful [] Anxious [] Often cries [] Exhaustion [] Unable to work [] Unable to attend mosque [] Unable to walk/stand [] Unable to read [] Unable to drive [] Unable to eat/drink [] Unable to sleep [] Unable to be with family [] Patient intubated [] Other: Summary Follow up later Time spent with patient
[2020-12-05 15:53] VITALS: BP 136/68; PULSE 78; RESP 16; TEMP 36.8; O2SAT 93
--- NOTE | 2020-12-05 15:55 | PC.NURSE ---
IV removed intact. Patient tolerated well. Reviewed discharge instructions with patient and daughter at this time. Educated patient and daughter on blood pressure medications and pain medications. Patient and daughter verbalized understanding. Wheel chaired patient to her private car. Attempted to assist patient into the car. Patient daughter states, I will do it. Patient helped into car by daughter. Patient is alert and orientated x2. Respirations even and non-labored on room air.
[2020-12-07 20:23] LABS: Vit D 1,25 (Oh)2, Total 34 pg/mL (18-72); Vit D2 1,25 (Oh)2 <8 pg/mL; Vit D3 1,25 (Oh)2 34 pg/mL
--- NOTE | 2020-12-08 14:06 | PC.SOCIAL ---
discharge follow up call made. spoke with pts , who went back to [place], he states he talked to her and she is doing well but i can call her daughter because she is staying with her at this time. will follow up with daughter.
--- NOTE | 2020-12-09 10:53 | PC.SOCIAL ---
discharge follow up call made, spoke with pts daughter. Daughter, Maryuri, she tells me that when they were discharged not all of the medications were at [facility] in [place], where she requested medications to be sent. She travelled to [facility] where controlled medication was sent and picked up Ultracet. At either facility Lovenox wasn't given to patients daughter. designer/writer called [facility] in [facility] to see if they had a prescription for Lovenox, they have the prescription but they don't have that strength of Lovenox available. There are no notes to why this message wasn't relayed to pts daughter. Patients daughter reports she won't take any medications anyway, she is taking something else that is a blood thinner, if she decides she is agreeable to taking lovenox the daughter will call me back. Teaching over the phone about importance of the blood thinner, how patient could develop blood clots and possible could occur. I will make a home visit to give first injection so I can teach the daughter.
--- NOTE | 2020-12-10 15:11 | PC.SOCIAL ---
copywriter called and spoke with daughter, Zoey updated daughter that copywriter had called [facility] in [place] and they had the Lovenox on hold and will fill for the patient. Also let daughter know that Vivi called and left a message with Dr. Benitez's nurse regarding Flexeril.
--- NOTE | 2020-12-10 15:20 | PC.SOCIAL ---
Addendum entered by Vivi Espinoza RN 12/10/20 16:02: Please note daughter Maryuri number is [phone] Original Note: Talked to daughter Maryuri. We discussed her BP and that pt prior to hospitalization was not on any bp meds and she did not want to take the meds. Recently over last 24-36 hours bp has increased and therefore she started bp meds. She in addition did not want to take the Enoxaprin injections and we discussed as did previous RN CM high risk of clots. We discussed that pharmacist can explain how to give sub q injection as well. We discussed her pain in legs and if there is more localized pain to one leg with swelling could have a clot already. We also discussed that it appears there is swelling to leg that operation was done on with some pitting edema but unable to determine mild or moderate etc other than there are indentions where socks etc were placed. Daughter indicates pt is drinking excessive amounts of water and we discussed may want to cut back a little on the water and limit salt as well as keep leg elevated some while sitting to help with fluid retention and that the fluid retention may be causing elevated blood pressure. She has either a relative or friend of family Rj who is nurse practitioner she may see if she can make a house call since she cant get pt in her vehicle to take to an appt. Patient is on phone as well and agreeable to take the Enoxaprin now therefore Dominique SAWYER notified [facility] in [facility] that they will be picking this up. Daughter then mentioned her urine smells like has ketones in it. We discussed might be a good idea to check the glucose level especially if extremely thirsty etc. They also wanted the flexeril called in to [facility] that she was taking here. This nurse agreed to reach out to Dr Benitez office to see if willing to call this in to [facility] as well. Had to leave message. Daughter is aware a message was left. All questions answered to best of this nurse ability and was strongly encouraged to see a provider since there are many concerns.
--- NOTE | 2020-12-10 16:47 | PC.SOCIAL ---
Daughter called back to indicate cant get the enoxaprin and no one has called regarding Flexeril. Called pharmacy with patient chapo on phone and they dont have in stock but do have the .6ml 60mg and can dispense those and educate daughter or her how to administer half dose of medication. This was communicated to daughter and she indicates that is her preference and her can be taught by pharmacist to administer. During conversation chapo asked if safe to wait until tomorrow and this nurse explained that this should have been filled and picked up at [facility] as instructed and that would have been the safest route for patient. No further questions voiced at this time.
--- NOTE | 2020-12-11 12:25 | PC.SOCIAL ---
daughter, rebecca called and left a message stating she had spoke with Dr. Benitez's nurse, Mohamud and he told her not to given the lovenox injections that it had been to long.
== END 2020-12-05 16:00 | disposition home health service (06) | DRG 522 ==
LOC: ER 16:42 → MEDSURG 19:56
PROVIDERS: Orthopaedic Surgery; Admitting Provider Student in an Organized Health Care Education/Training Program; Emergency Provider Physician Assistant; Visit Provider Student in an Organized Health Care Education/Training Program
PROC: 0SRR0JA Replacement of Right Hip Joint, Femoral Surface with Synthetic Substitute, Uncemented, Open Approach (ICD-10-PCS; CPT 27125; principal; 2020-12-03 14:40)
DX: S72.001A Fracture of unspecified part of neck of right femur, initial encounter for closed fracture (principal); N39.0 Urinary tract infection, site not specified; W01.0XXA Fall on same level from slipping, tripping and stumbling without subsequent striking against object, initial encounter; Z87.891 Personal history of nicotine dependence; D50.9 Iron deficiency anemia, unspecified; I12.9 Hypertensive chronic kidney disease with stage 1 through stage 4 chronic kidney disease, or unspecified chronic kidney disease; N18.9 Chronic kidney disease, unspecified; E55.9 Vitamin D deficiency, unspecified
CPT/HCPCS: 36415; 36600; 51702; 71045; 73501; 73502; 80048; 80051; 80053; 80061; 81001; 82306; 82310; 82330; 82436; 82570; 82607; 82652; 82728; 82746; 82805; 83036; 83540; 83550; 83735; 83880; 83970; 84100; 84133; 84300; 84443; 85025; 85610; 85999; 87077; 87086; 87186; 87426; 93005; 93306; 94664; 96365; 96367; 96372; 96375; 97116; 97161; 97167; 97530; 99291; C1776; J0690; J1580; J1650; J2270; J2704; J3010; J3490; J7030

== ENCOUNTER → 2020-12-24 11:29 | Outpatient (BNVA) | payer MEDICARE, OTHER, SELFPAY | PROVIDERS: Visit Provider Registered Nurse | DX: R41.0 Disorientation, unspecified (principal) | CPT/HCPCS: 81000 ==

== ENCOUNTER → 2021-01-19 12:18 | Outpatient (BNVA) | payer MEDICARE, OTHER, SELFPAY | PROVIDERS: Visit Provider Orthopaedic Surgery | DX: Z98.890 Other specified postprocedural states (principal) | CPT/HCPCS: 73502 ==

== ENCOUNTER 2021-01-20 19:02 | Outpatient (CLI) | payer MEDICARE, OTHER, SELFPAY ==
--- NOTE | 2021-01-20 | USR_ITS ---
PROCEDURE INFORMATION: Exam: US Duplex Right Lower Extremity Veins, Limited Exam date and time: 01/20/2021 7:35 PM Age: 80 years old Clinical indication: Pain; Leg, lower; Right; Prior surgery; Surgery date: <1 month; Additional info: RT leg pain TECHNIQUE: Imaging protocol: Real-time Duplex ultrasound of the Right Lower Extremity with 2-D bustillo scale, color Doppler flow and spectral waveform analysis with image documentation. Limited exam was focused on the right lower extremity veins. COMPARISON: No relevant prior studies available. FINDINGS: Right deep veins: Unremarkable. The common femoral, femoral, proximal profunda femoral and popliteal veins are patent without thrombus. Normal Doppler waveforms. Normal compressibility and/or augmentation response. Right superficial veins: Unremarkable. Saphenofemoral junction is patent without thrombus. Soft tissues: Moderate subcutaneous edema at the right calf. US/[place] [id number] IMPRESSION: 1. No evidence for deep venous thrombosis. 2. Moderate subcutaneous edema at the right calf. Radiation Dose CTDIVOL = (mGy): DLP = (mGy-cm)
== END 2021-01-20 19:03 | disposition home or self-care (01) ==
LOC: RAD 19:07
PROVIDERS: Visit Provider Orthopaedic Surgery
DX: M79.604 Pain in right leg (principal); R60.0 Localized edema
CPT/HCPCS: 93971